=== PATIENT | male | born 1955 | race Caucasian/White ===

== ENCOUNTER 2020-10-18 07:43 | Inpatient (IN) | payer OTHER ==
[2020-10-18 09:34] LABS: Protime INR 1.02
--- NOTE | 2020-10-18 09:38 | RAD REPORT ---
EXAM DESCRIPTION: RAD - Chest Single View - 10/18/2020 9:33 am CLINICAL HISTORY: COUGH COMPARISON: CHEST SINGLE VIEW dated 07/07/2014; CT HEAD SPINE CAP W CONTRAST dated 07/07/2014 FINDINGS: Widespread bilateral airspace disease. This is worse on the left side. The heart size is w ithin normal limits.No acute osseous abnormality. No significant pleural effusions or pneumothorax. P rior left rib plated screw fixation. Embolization coils in left upper quadrant. IMPRESSION: Widespread bilateral airspace disease concerning for multifocal pneumonia.
[2020-10-18 09:46] LABS: Absolute Lymphocytes (CBC) 0.6 K/uL (0.7-4.9); Basophils % 0.6 % (0-1.3); Hematocrit 39.2 % (39.6-49.0); Lymphocytes % 4.4 % (15.3-44.8); RBC Red Blood Cell Count 4.04 M/uL (4.33-5.43)
[2020-10-18 09:51] LABS: ALT/SGPT 49 U/L (12-78); AST/SGOT 88 U/L (15-37); Albumin 3.2 g/dL (3.4-5.0); Alkaline Phosphatase 125 U/L (45-117); BUN Blood Urea Nitrogen 16 mg/dL (7-18); Bicarbonate 26 mmol/L (21-32); Bilirubin Direct 0.3 mg/dL (0-0.2); Bilirubin Total 0.5 mg/dL (0.2-1.0); Glucose Level 115 mg/dL (74-106); Magnesium 1.8 mg/dL (1.8-2.4); NT PRO-BNP 777 pg/mL (<125); Potassium 3.1 mmol/L (3.5-5.1); Sodium Level 141 mmol/L (136-145); Troponin (Emerg Dept Use Only) < 0.02 ng/mL (0.0-0.045)
[2020-10-18] MEDS ORDERED: CEFTRIAXONE/SWI 1gm 1 GM/10 ML SYR ONE (10:49)
[2020-10-18 10:51] LABS: Blood Morphology Comment NOT SEEN (NOT SEEN); Platelet Estimate ADEQ; White Blood Cell Scan OK (OK)
[2020-10-18] MEDS ORDERED: AZITHROMYCIN IV 500 MG in NA CHLORIDE 0.9% 250 ML IVPB ONE (11:00)
--- NOTE | 2020-10-18 11:04 | ER ---
Nurse's Notes [facility] Name: Eulogio Orozco Age: 65 yrs Sex: Male : 1955 Arrival Date: 10/18/2020 Time: 07:49 Bed 17 Private MD: Diagnosis: Pneumonia due to SARS-associated coronavirus;Coronavirus infection, unspecified;Hypoxemia Presentation: 10/18 08:45 Chief complaint: Patient states: Shortness of breath and ear pain that began . ss Coronavirus screen: Client presents with at least one sign or symptom that may indicate coronavirus-19. Standard/surgical mask placed on the client. Provider contacted for isolation considerations. Ebola Screen: Patient denies exposure to infectious person. Patient denies travel to an Ebola-affected area in the 21 days before illness onset. Initial Sepsis Screen:. Risk Assessment: Do you want to hurt yourself or someone else? Patient reports no desire to harm self or others. Onset of symptoms was October 15, 2020. 08:45 Method Of Arrival: Wheelchair 08:45 Acuity: DICK 1 09:01 Initial Sepsis Screen: Does the patient meet any 2 criteria? No. Patient's initial ss sepsis screen is negative. Does the patient have a suspected source of infection? No. Patient's initial sepsis screen is negative. Triage Assessment: 13:00 Respiratory: Reports shortness of breath at rest. ae4 13:16 Respiratory: the patient has severe shortness of breath. ae4 15:34 Respiratory: Onset: The symptoms/episode began/occurred. ae4 Historical: - Allergies: 09:01 No Known Allergies; ss - PMHx: 09:01 Hypertensive disorder; high cholesterol; ss - Immunization history:: Client reports having NOT received the Covid vaccine. - Social history:: Smoking status: Patient/guardian denies using tobacco, the patient reports quitting approximately 15 years ago. Screenin:34 Abuse screen: Denies threats or abuse. Denies injuries from another. Nutritional ae4 screening: No deficits noted. Tuberculosis screening: No symptoms or risk factors identified. Fall Risk None identified. Assessment: 09:30 General: Appears in no apparent distress. uncomfortable. Pain: Denies pain. Neuro: ae4 Level of Consciousness is awake, alert, obeys commands, Oriented to person, place, time, situation, Appropriate for age. Cardiovascular: Heart tones S1 S2 present Patient's skin is warm and dry. Rhythm is regular. Respiratory: Airway is patent Respiratory effort is labored, Respiratory pattern is regular, symmetrical, Breath sounds with crackles bilaterally. Breath sounds are diminished bilaterally. GI: Abdomen is round Bowel sounds present X 4 quads. Patient currently denies abdominal pain. : No signs and/or symptoms were reported regarding the genitourinary system. EENT: No signs and/or symptoms were reported regarding the EENT system. Derm: Skin is pale. Musculoskeletal: No signs and/or symptoms reported regarding the musculoskeletal system. 12:13 Reassessment: Provider notified of O2 status, new orders received. ae4 13:00 Pain: Denies pain. Cardiovascular: Rhythm is regular. Respiratory: Airway is patent ae4 Respiratory effort is labored, with nasal flaring, shallow, using tripod position, Respiratory pattern is regular, symmetrical, tachypnea Breath sounds with crackles bilaterally. Breath sounds are diminished bilaterally. 13:08 Reassessment: Respiratory at bedside. ae4 13:11 Reassessment: Patient's oxygen saturation level dropped to 34% on High flow oxygen. ae4 Provider notified. Patient states " I cannot seem to catch my breath." Provider notified, new orders received. Respiratory Therapy paged. 13:40 General: Appears uncomfortable, Behavior is anxious, restless. Neuro: Level of ae4 Consciousness is awake, alert, obeys commands, Oriented to person, place, time, situation, Appropriate for age. 13:40 Reassessment: Patient states after he went ot CT, he felt like he could not catch his ae4 breath again and that the bipap machine "feels weird. Provider notified, new orders received. 15:30 Reassessment: Patient is resting with eyes closed. Awakens to verbal stimuli. ae4 15:35 Reassessment: Spoke with Pari Orozco, patient's , via telephone. Nurse provided ae4 update via telephone. 17:09 Reassessment: Patient and/or family updated on plan of care and expected duration. Pain ae4 level reassessed. Neuro: Level of Consciousness is awake, alert, obeys commands, Oriented to person, place, time, situation. Respiratory: Airway is patent Respiratory effort is labored, Respiratory pattern is regular, symmetrical, tachypnea Breath sounds with crackles bilaterally. Breath sounds are diminished bilaterally. 18:22 Reassessment: Patient is drowsy, awakens to verbal stimuli and is able to drink from ae4 straw with assistance. 18:45 Reassessment: Patient and/or family updated on plan of care and expected duration. Pain ae4 level reassessed. 19:49 Reassessment: Nurse spoke with Pari patient's via telephone and provided update ae4 on plan of care and patient status. Vital Signs: 08:45 BP 109 / 54; Pulse 107; Resp 25; Pulse Ox 45% on R/A; ss 08:49 BP 128 / 64; Pulse 100; Resp 22; Pulse Ox 25% on R/A; mh5 08:50 Pulse Ox 43% on 6 lpm NC; ss 09:01 Temp 97.8(TE); ss 09:04 Pulse Ox 96% on 15% Non-rebreather mask; ss 10:40 BP 103 / 74; Pulse 88; Resp 19; Pulse Ox 79% on 15% Non-rebreather mask; ae4 12:07 BP 109 / 72; Pulse 98; Resp 20; Pulse Ox 70% on 15% Non-rebreather mask; ae4 13:33 BP 125 / 77; Pulse 108; Resp 33; Pulse Ox 89% on 100% BiPAP; ae4 13:56 BP 113 / 77; Pulse 99; Resp 24; Pulse Ox 82% on 100% BiPAP; ae4 15:28 BP 105 / 64; Pulse 91; Resp 25; Pulse Ox 89% on 100% BiPAP; ae4 16:32 BP 111 / 69; Pulse 91; Resp 32; Pulse Ox 87% on 100% BiPAP; ae4 17:09 BP 115 / 73; Pulse 96; Resp 27; Pulse Ox 23% on 100% BiPAP; ae4 18:21 BP 136 / 56; Pulse 71; Resp 12; Pulse Ox 96% on 8% Nebulizer Mask; ae4 18:44 BP 103 / 71; Pulse 88; Resp 26; Pulse Ox 88% on 100% BiPAP; ae4 19:32 BP 110 / 75; Pulse 88; Resp 28; Pulse Ox 84% on 100% BiPAP; ae4 ED Course: 07:49 Patient arrived in ED. mr 07:56 Dima Erazo MD is Attending Physician. tw4 08:47 Triage completed. ss 08:51 Patient has correct armband on for positive identification. Bed in low position. Call [facility] light in reach. Side rails up X 1. Warm blanket given. Pillow given. wash mill operator on. Pulse ox on. NIBP on. 09:01 Arm band placed on right wrist. ss 09:28 Initial lab(s) drawn, by [place], sent to lab. COVID swab sent to lab. Inserted saline lock: [facility] 22 gauge in right forearm, using aseptic technique. Blood collected. 09:29 Basic Metabolic Panel Sent. 5 09:30 ABG Sent. 5 09:30 COVID-19 : Document "Date of Symptom Onset" if Symptomatic. Sent. 5 09:30 Troponin (emerg Dept Use Only) Sent. 5 09:30 PT-INR Sent. 5 09:30 NT PRO-BNP Sent. [facility] 09:30 Magnesium Sent. 5 09:30 LFT's Sent. 5 09:30 CBC with Diff Sent. 5 09:30 CXR XRAY Sent. 5 09:30 EKG done, by ED staff, reviewed by Dima Erazo MD. 5 09:32 CXR XRAY In Process Unspecified. EDMS 09:42 Wellington Teague, RN is Primary Nurse. ae4 10:58 Aníbal Sunshine is Hospitalizing Provider. tw4 10/19 06:11 Primary Nurse role handed off by Wellington Teague, RN mw2 Administered Medications: 10/18 10:32 Drug: Rocephin (cefTRIAXone) 1 grams Route: IV; Rate: calculated rate; Site: right ae4 antecubital; 14:02 Follow up: Response: No adverse reaction; IV Status: Completed infusion ae4 11:50 Drug: AZITHromycin 500 mg Route: IVPB; Infused Over: 1 hrs; Site: right antecubital; ae4 14:02 Follow up: IV Status: Completed infusion; IV Intake: 250ml ae4 13:45 Drug: Ativan (LORazepam) 0.5 mg Route: IVP; Site: right antecubital; ae4 14:01 Follow up: Response: No adverse reaction; RASS: Alert and Calm (0); RASS: Alert and ae4 Calm (0) Patient appears more relaxed. Intake: 14:02 IV: 250ml; Total: 250ml. ae4 Outcome: 11:04 Decision to Hospitalize by Provider. tw4 10/19 14:45 Patient left the ED. iw Signatures: Dispatcher [employer] Lo Garcia Alexsandra Moreira, TREY YANG Concepcion Alvarez RN RN Pari Godwin [facility] Dima Erazo MD MD tw4 [place] Benitez 2 Wellington Teague RN RN ae4 Corrections: (The following items were deleted from the chart) 10/18 13:25 13:15 Respiratory: Airway is patent Respiratory effort is labored, with nasal flaring, ae4 shallow, using tripod position, Respiratory pattern is regular, symmetrical, tachypnea Breath sounds with crackles bilaterally. Breath sounds are diminished bilaterally. ae4 :25 13:15 Cardiovascular: Rhythm is regular ae4 ae4 :25 13:15 Pain: Denies pain. ae4 ae4 13:56 13:40 Neuro: Level of Consciousness is awake, alert, obeys commands, Oriented to ae4 person, place, time, situation, Appropriate for age ae4 13:58 13:33 BP 125 / 77; Pulse 108bpm; Resp 24bpm; Pulse Ox 89% 02 100% BiPAP; ae4 ae4
--- NOTE | 2020-10-18 11:04 | EDPHYS ---
Physician Documentation [facility] Name: Eulogio Orozco Age: 65 yrs Sex: Male : 1955 Arrival Date: 10/18/2020 Time: 07:49 Bed 17 Private MD: ED Physician Dima Erazo HPI: 10/18 14:14 This 65 yrs old Male presents to ER via Wheelchair with complaints of tw4 Breathing Difficulty, Ear Pain. 14:14 The patient has shortness of breath at rest. tw4 14:14 Onset: The symptoms/episode began/occurred 3 day(s) ago. Duration: The symptoms are tw4 continuous, and are unchanged since they started. The patient's shortness of breath has no apparent modifying factors. Associated signs and symptoms: Pertinent positives: ear pain. Severity of symptoms: At their worst the symptoms were moderate in the emergency department the symptoms are worse. The patient has not experienced similar symptoms in the past. Historical: - Allergies: 09:01 No Known Allergies; ss - PMHx: 09: Hypertensive disorder; high cholesterol; ss - Immunization history:: Client reports having NOT received the Covid vaccine. - Social history:: Smoking status: Patient/guardian denies using tobacco, the patient reports quitting approximately 15 years ago. ROS: 14:14 Constitutional: Negative for fever, chills, and weight loss, Eyes: Negative for injury, tw4 pain, redness, and discharge. 14:14 Cardiovascular: Negative for chest pain, palpitations, and edema, Abdomen/GI: Negative for abdominal pain, nausea, vomiting, diarrhea, and constipation, Back: Negative for injury and pain, MS/Extremity: Negative for injury and deformity, Skin: Negative for injury, rash, and discoloration, Neuro: Negative for headache, weakness, numbness, tingling, and seizure, Psych: Negative for depression, anxiety, suicide ideation, homicidal ideation, and hallucinations. 14:14 ENT: Positive for ear pain, Negative for injury or acute deformity, drainage from ear(s), Gum pain hearing loss, pulling at ears, Teeth pain tinnitus, nasal discharge, rhinorrhea. 14:14 Respiratory: Positive for cough, shortness of breath, Negative for dyspnea on exertion, hemoptysis, orthopnea, pleurisy, sputum production, wheezing. Exam: 14:14 Constitutional: This is a well developed, well nourished patient who is awake, alert, tw4 and in no acute distress. Head/Face: Normocephalic, atraumatic. Chest/axilla: Normal chest wall appearance and motion. Nontender with no deformity. No lesions are appreciated. Cardiovascular: Regular rate and rhythm with a normal S1 and S2. No gallops, murmurs, or rubs. Normal PMI, no JVD. No pulse deficits. 14:14 Abdomen/GI: Soft, non-tender, with normal bowel sounds. No distension or tympany. No guarding or rebound. No evidence of tenderness throughout. Back: No spinal tenderness. No costovertebral tenderness. Full range of motion. Skin: Warm, dry with normal turgor. Normal color with no rashes, no lesions, and no evidence of cellulitis. MS/ Extremity: Pulses equal, no cyanosis. Neurovascular intact. Full, normal range of motion. Neuro: Awake and alert, GCS 15, oriented to person, place, time, and situation. Cranial nerves II-XII grossly intact. Motor strength 5/5 in all extremities. Sensory grossly intact. Cerebellar exam normal. Normal gait. 14:14 Respiratory: moderate respiratory distress is noted, Respirations: labored breathing, Breath sounds: rales, that are moderate, are located in both bases, decreased breath sounds. Vital Signs: 08:45 BP 109 / 54; Pulse 107; Resp 25; Pulse Ox 45% on R/A; ss 08:49 BP 128 / 64; Pulse 100; Resp 22; Pulse Ox 25% on R/A; mh5 08:50 Pulse Ox 43% on 6 lpm NC; ss 09:01 Temp 97.8(TE); ss 09:04 Pulse Ox 96% on 15% Non-rebreather mask; ss 10:40 BP 103 / 74; Pulse 88; Resp 19; Pulse Ox 79% on 15% Non-rebreather mask; ae4 12:07 BP 109 / 72; Pulse 98; Resp 20; Pulse Ox 70% on 15% Non-rebreather mask; ae4 13:33 BP 125 / 77; Pulse 108; Resp 33; Pulse Ox 89% on 100% BiPAP; ae4 13:56 BP 113 / 77; Pulse 99; Resp 24; Pulse Ox 82% on 100% BiPAP; ae4 15:28 BP 105 / 64; Pulse 91; Resp 25; Pulse Ox 89% on 100% BiPAP; ae4 16:32 BP 111 / 69; Pulse 91; Resp 32; Pulse Ox 87% on 100% BiPAP; ae4 17:09 BP 115 / 73; Pulse 96; Resp 27; Pulse Ox 23% on 100% BiPAP; ae4 18:21 BP 136 / 56; Pulse 71; Resp 12; Pulse Ox 96% on 8% Nebulizer Mask; ae4 18:44 BP 103 / 71; Pulse 88; Resp 26; Pulse Ox 88% on 100% BiPAP; ae4 19:32 BP 110 / 75; Pulse 88; Resp 28; Pulse Ox 84% on 100% BiPAP; ae4 MDM: 08:55 Patient medically screened. tw4 14:14 Antibiotic administration: Rocephin and Zithromax given. Data reviewed: vital signs, tw4 nurses notes. Data reviewed: lab test result(s), cardiac enzymes, CBC, electrolytes, hepatic panel, EKG, radiologic studies, plain films. Data interpreted: Pulse oximetry: Interpretation: hypoxia. Plan: O2 by Mask applied. Test interpretation: by ED physician or midlevel provider: ECG. Counseling: I had a detailed discussion with the patient and/or guardian regarding: the historical points, exam findings, and any diagnostic results supporting the discharge/admit diagnosis. 10/18 08:04 Order name: COVID-19 : Document "Date of Symptom Onset" if Symptomatic. tw4 10/18 08:04 Order name: Basic Metabolic Panel tw4 10/18 08:04 Order name: CBC with Diff tw4 10/18 08:04 Order name: LFT's; Complete Time: 09:57 tw4 10/18 08:04 Order name: Magnesium; Complete Time: 09:57 tw4 10/18 08:04 Order name: NT PRO-BNP; Complete Time: 09:57 tw4 10/18 08:04 Order name: PT-INR; Complete Time: 09:57 tw4 10/18 08:04 Order name: Troponin (emerg Dept Use Only); Complete Time: 09:57 tw4 10/18 08:05 Order name: Basic Metabolic Panel; Complete Time: 09:57 EDMS 10/18 09:04 Order name: ABG tw4 10/18 09:05 Order name: ABG Arterial Blood Gas EDMS 10/18 10:39 Order name: SARS-COV-2 RT PCR EDMS 10/18 10:51 Order name: CBC Smear Scan EDMS 10/18 11:46 Order name: Comprehensive Metabolic Panel EDMS 10/18 11:46 Order name: C-Reactive Protein EDMS 10/18 11:46 Order name: C-Reactive Protein EDMS 10/18 11:46 Order name: C-Reactive Protein EDMS 10/18 11:46 Order name: C-Reactive Protein EDMS 10/18 11:46 Order name: Comprehensive Metabolic Panel EDMS 10/18 11:46 Order name: Ferritin EDMS 10/18 11:46 Order name: Ferritin EDMS 10/18 11:46 Order name: Ferritin EDMS 10/18 11:46 Order name: D-Dimer EDMS 10/18 11:46 Order name: D-Dimer EDMS 10/18 11:47 Order name: D-Dimer EDMS 10/18 11:47 Order name: Ferritin EDMS 10/18 11:47 Order name: Lipid Profile EDMS 10/18 11:47 Order name: Lipid Profile EDMS 10/18 11:47 Order name: Magnesium EDMS 10/18 08:04 Order name: CXR XRAY; Complete Time: 09:57 tw4 10/18 08:04 Order name: EKG; Complete Time: 08:05 tw4 10/18 08:04 Order name: Cardiac monitoring; Complete Time: 09:29 tw4 10/18 08:04 Order name: EKG - Nurse/Tech; Complete Time: 09:29 tw4 10/18 08:04 Order name: IV Saline Lock; Complete Time: 09:29 tw4 10/18 08:04 Order name: Labs collected and sent; Complete Time: 09:29 tw4 10/18 08:04 Order name: O2 Per Protocol; Complete Time: 09:29 tw4 10/18 08:04 Order name: O2 Sat Monitoring; Complete Time: 09:29 tw4 10/18 11:47 Order name: Magnesium EDMS 10/18 11:47 Order name: Phosphorus EDMS 10/18 11:47 Order name: Phosphorus EDMS 10/18 11:47 Order name: Heart Healthy EDMS 10/18 11:47 Order name: CBC with Automated Diff EDMS 10/18 11:47 Order name: CBC with Automated Diff EDMS 10/18 11:47 Order name: D-Dimer EDMS 10/18 12:11 Order name: CT Chest For PE Angio tw4 10/18 13:04 Order name: CT EDMS 10/18 20:10 Order name: Glucose, Ancillary Testing EDMS 10/19 09:04 Order name: Glucose, Ancillary Testing EDMS 10/19 09:04 Order name: Glucose, Ancillary Testing EDMS 10/19 11:32 Order name: Glucose, Ancillary Testing EDMS EC:51 Rate is 92 beats/min. Rhythm is regular. QRS [place] is Normal. OR interval is normal. QRS tw4 interval is normal. QT interval is prolonged. No Q waves. T waves are Normal. No ST changes noted. Clinical impression: NSR w/ Non-specific ST/T Changes. Interpreted by me. Reviewed by me. Administered Medications: 10:32 Drug: Rocephin (cefTRIAXone) 1 grams Route: IV; Rate: calculated rate; Site: right ae4 antecubital; 14:02 Follow up: Response: No adverse reaction; IV Status: Completed infusion ae4 11:50 Drug: AZITHromycin 500 mg Route: IVPB; Infused Over: 1 hrs; Site: right antecubital; ae4 14:02 Follow up: IV Status: Completed infusion; IV Intake: 250ml ae4 13:45 Drug: Ativan (LORazepam) 0.5 mg Route: IVP; Site: right antecubital; ae4 14:01 Follow up: Response: No adverse reaction; RASS: Alert and Calm (0); RASS: Alert and ae4 Calm (0) Patient appears more relaxed. Disposition Summary: 10/18/20 11:04 Hospitalization Ordered Hospitalization Status: Inpatient Admission tw4 Provider: Aníbal Sunshine twSyd Condition: Stable tw4 Problem: new tw4 Symptoms: are unchanged tw4 Bed/Room Type: Standard tw4 Location: Telemetry/MedSurg (Inpatient)(10/19/20 12:40) Room Assignment: 426(10/19/20 12:40) bd Diagnosis - Pneumonia due to SARS-associated coronavirus tw4 - Coronavirus infection, unspecified tw4 - Hypoxemia tw4 Forms: - Medication Reconciliation Form tw4 - SBAR form tw4 Signatures: Dispatcher [employer] [facility] Bria Steele Shelby, RN RN ss Dima Erazo MD MD tw4 Li Bustos Andrea, RN RN ae4 Corrections: (The following items were deleted from the chart) :29 08:05 CORONAVIRUS ordered. EDMS EDMS 15:48 11:04 Intensive Care Unit 4 eb 15:48 11:04 [facility] eb 10/19 12:40 08 15:48 [facility] ER HOLD eb bd 10/19 12:40 08 15:48 ERHOLD- eb bd
[2020-10-18] MEDS ORDERED: D50W 25 GM/50 ML SYRINGE IV PRN (11:38)
[2020-10-18] MEDS ORDERED: ONDANSETRON 4 MG/2 ML VIAL IV PRN (11:38)
[2020-10-18] MEDS ORDERED: ALPRAZOLAM 0.25 MG TABLET PO PRN (11:38)
[2020-10-18] MEDS ORDERED: GLUCAGON 1 MG/VIAL IM PRN (11:38)
--- NOTE | 2020-10-18 11:55 | P.HP ---
Certification for Inpatient Patient admitted to: Inpatient With expected LOS: >2 Midnights Practitioner: I am a practitioner with admitting privileges, knowledge of patient current condition, hospital course, and medical plan of care. Services: Services provided to patient in accordance with Admission requirements found in Title 42 Section 412.3 of the Code of Federal Regulations Patient History Date of Service: 10/18/20 Reason for admission: Shortness of breath History of Present Illness: 65-year-old gentleman with a history of COPD, hypertension and hypercholesteremia presented to the emergency department with a complaint of progressive shortness of about 4 days duration. Patient reports nonproductive cough, dyspnea on exertion progressing to dyspnea at rest. Patient found to be hypoxic in the ED and required 100% non-rebreather mask for his oxygen saturation to stay above 90%. Oxygen saturation was 45% on room air on arrival. Chest x-ray demonstrated diffuse bilateral infiltrates. Patient tested positive for COVID 19. He has not recieved the COVID vaccine. Patient has SIRS with leukocytosis and tachycardia. He is admitted for further management. Allergies No Known Allergies Allergy (Unverified 07/07/14 20:02) - Past Medical/Surgical History -: Hypertension -: Hyperlipidemia -: COPD -: Surgery for left broken ribs - Family History Mother -: Diabetes - Social History Smoking Status: Former smoker Alcohol use: Yes CD- Drugs: No Place of Residence: Home Review of Systems Other: Except as documented, all other systems reviewed and negative. Physical Examination - Physical Exam General: Alert, In no apparent distress HEENT: Other (100% non-rebreather mask) Neck: Supple, JVD not distended Respiratory: Diminished, Crackles/rales Cardiovascular: Regular rate/rhythm, Normal S1 S2 Capillary refill: <2 Seconds Gastrointestinal: Normal bowel sounds, Soft and benign, No tenderness Musculoskeletal: No swelling, No tenderness Integumentary: No rashes, No erythema Neurological: Normal speech, Normal strength at 5/5 x4 extr, Cranial nerves 3-12 intact Lymphatics: No axilla or inguinal lymphadenopathy - Studies Laboratory Data (last 24 hrs) 10/18/20 09:20: PT 11.7, INR 1.02 10/18/20 09:20: WBC 14.40 H, Hgb 13.1 L, Hct 39.2 L, Plt Count 215 10/18/20 09:20: Sodium 141, Potassium 3.1 L, BUN 16, Creatinine 1.40 H, Glucose 115 H, Magnesium 1.8, Total Bilirubin 0.5, AST 88 H, ALT 49, Alkaline Phosphatase 125 H Assessment and Plan - Problems (Diagnosis) (1) Pneumonia due to 2019 novel coronavirus Current Visit: Yes Status: Acute (2) Acute respiratory failure with hypoxia Current Visit: Yes Status: Acute (3) Hypertension Current Visit: Yes Status: Acute (4) COPD (chronic obstructive pulmonary disease) Current Visit: Yes Status: Acute - Plan Admit patient to the medical floor. COVID protocol initiated IV steroid, bronchodilators., Vitamin supplementation Pharmacy to evaluate for Remdesivir therapy Monitor inflammatory markers. Consult to pulmonary. Continue home antihypertensives. Continue Lipitor. - Advance Directives Does patient have a Living Will: No Does patient have a Durable POA for Healthcare: No
[2020-10-18 12:00] LABS: Arterial Blood Carboxyhemoglob 1.2 % (0-1.5); Blood Gas Oxyhemoglobin 83.2 % (94-97); Blood O2 Saturation 84.9 % (92-98.5)
--- NOTE | 2020-10-18 13:03 | RAD REPORT ---
EXAM DESCRIPTION: CT - Chest For Pe Angio - 10/18/2020 12:47 pm CLINICAL HISTORY: SOB COMPARISON: No comparisons FINDINGS: Chest Wall: No suspicious thyroid nodules or pathologic lymphadenopathy. Lungs: Widespread ground-glass and consolidative airspace disease which is severe. Pleura: No significant effusions or pneumothorax. Mediastinum/sulaiman: No pathologic lymphadenopathy. Pulmonary arteries/Aorta: No filling defect identified. No aortic aneurysm. Heart: No significant pericardial effusion. Cardiomegaly. Upper abdomen: No acute abnormality. Remote rib fractures. Bones: No acute abnormality. IMPRESSION: Negative for pulmonary embolism. Severe widespread bilateral airspace disease most likel y representing multifocal pneumonia though superimposed edema difficult to entirely exclude
[2020-10-18] MEDS ORDERED: LORazepam 2 MG/ML VIAL ONE (14:04)
[2020-10-18] MEDS ORDERED: FAMOTIDINE 20 MG TAB ONE (20:50)
[2020-10-18] MEDS ORDERED: METHYLPREDNISOLONE 40 MG INJ ONE (20:50)
[2020-10-18] MEDS: FAMOTIDINE 20 MG/2 ML VIAL IV SCH (20:51)
[2020-10-18] MEDS: METHYLPREDNISOLONE 125 MG INJ IV SCH (20:51)
[2020-10-18] MEDS: INSULIN -REGULAR HUMAN 50 UNIT/0.5 ML ML SQ SCH (20:57)
[2020-10-18] MEDS ORDERED: FAMOTIDINE 20 MG/2 ML VIAL IV ONE (21:10)
[2020-10-19 03:14] LABS: Absolute Lymphocytes (CBC) 0.5 K/uL (0.7-4.9); Hematocrit 38.1 % (39.6-49.0); Lymphocytes % 3.9 % (15.3-44.8); MPV 8.8 fL (7.6-11.3); RBC Red Blood Cell Count 3.94 M/uL (4.33-5.43)
[2020-10-19 03:43] LABS: Albumin 2.7 g/dL (3.4-5.0); Bilirubin Total 0.5 mg/dL (0.2-1.0); Ferritin 1890.8 ng/mL (26-388); Magnesium 2.1 mg/dL (1.8-2.4); Phosphorus 2.9 mg/dL (2.5-4.9); Potassium 3.6 mmol/L (3.5-5.1); Protein, Total 6.7 g/dL (6.4-8.2)
[2020-10-19] MEDS: INSULIN -REGULAR HUMAN 50 UNIT/0.5 ML ML SQ SCH ×4 (07:30→21:00)
[2020-10-19] MEDS ORDERED: ENOXAPARIN 40 MG/0.4 ML SQ SCH (09:00)
[2020-10-19] MEDS: FAMOTIDINE 20 MG/2 ML VIAL IV SCH ×2 (09:00→20:55)
[2020-10-19] MEDS: CEFTRIAXONE/SWI 1gm 1 GM/10 ML SYR IV SCH (09:00)
[2020-10-19] MEDS ORDERED: AZITHROMYCIN IV 500 MG in NA CHLORIDE 0.9% 250 ML IVPB SCH (09:00)
[2020-10-19] MEDS: METHYLPREDNISOLONE 125 MG INJ IV SCH ×2 (09:00→20:56)
[2020-10-19] MEDS ORDERED: POTASSIUM CL SA 10 MEQ TAB PO ONE ×2 (09:00→10:22)
[2020-10-19] MEDS ORDERED: METHYLPREDNISOLONE 125 MG INJ ONE (10:01)
[2020-10-19] MEDS ORDERED: CEFTRIAXONE 1000 MG/VIAL ONE (10:02)
[2020-10-19] MEDS ORDERED: ENOXAPARIN 40 MG/0.4 ML SQ ONE (10:02)
[2020-10-19] MEDS ORDERED: FAMOTIDINE 20 MG/2 ML VIAL IV ONE (10:02)
[2020-10-19] MEDS ORDERED: CEFTRIAXONE/SWI 1gm 1 GM/10 ML SYR ONE (10:03)
[2020-10-19] MEDS ORDERED: ALPRAZOLAM 0.25 MG TABLET PO PRN (15:21)
--- NOTE | 2020-10-19 16:33 | P.CNS ---
Date of Consult: 10/19/20 Reason for Consult: Resp failure from COVID Chief Complaint: Shortness of breath History of Present Illness: Age 65 metabolic synd and COPD AW resp faiure from COVID/ requiring high conc of O2 Allergies No Known Allergies Allergy (Unverified 07/07/14 20:02) Home Medications: Amlodipine [Norvasc*] 1 tab PO DAILY 10/18/20 Atorvastatin Calcium 1 tab PO DAILY 10/18/20 Benazepril HCl 1 tab PO DAILY 10/18/20 Fluticasone [Flonase 50MCG Nasal [place]*] 1 spray IH SEECOM 10/18/20 - Past Medical/Surgical History Diabetic: No -: Hypertension -: Hyperlipidemia -: COPD -: Surgery for left broken ribs - Family History Mother Medical History: Diabetes - Social History Alcohol use: No CD- Drugs: No Caffeine use: No Place of Residence: Home Review of Systems General: Weakness Respiratory: Shortness of Breath Physical Examination Temp Pulse Resp BP Pulse Ox 97.6 F 83 24 H 114/75 92 10/19/20 12:00 10/19/20 12:00 10/19/20 12:00 10/19/20 12:00 10/19/20 12:00 General: Alert, Oriented x3, Cooperative, Moderate distress - Problems (1) Pneumonia due to 2019 novel coronavirus Current Visit: Yes Status: Acute Plan: Ag e63 AW severe COVID penumonia/100% FIO2/ BIPAP / ivermectin. Xarelto and ana rosa steroids
[2020-10-19] MEDS: RIVAROXABAN 20 MG TABLET PO SCH (17:00)
[2020-10-19] MEDS: BARICITINIB 2 MG TABLET PO SCH (17:31)
[2020-10-19] MEDS: IVERMECTIN 3 MG TABLET PO SCH (17:32)
--- NOTE | 2020-10-19 18:13 | P.PN ---
Subjective Date of Service: 10/19/20 Chief Complaint: Shortness of breath Patient worse today and now requiring BiPAP with 100% FiO2. Physical Examination - Vital Signs Temperature: 98.3 F Blood Pressure: 121/78 Pulse: 104 Respirations: 22 Pulse Ox (%): 89 - Physical Exam General: Alert, Oriented x3 HEENT: Other (BiPAP/CPAP) Respiratory: Other (Nonlabored breathing.) Cardiovascular: Other (Tachycardia) Gastrointestinal: Soft and benign, Non-distended Musculoskeletal: No swelling Integumentary: No rashes Neurological: Normal strength at 5/5 x4 extr Assessment And Plan - Current Problems (Diagnosis) (1) Pneumonia due to 2019 novel coronavirus Current Visit: Yes Status: Acute (2) Acute respiratory failure with hypoxia Current Visit: Yes Status: Acute (3) Hypertension Current Visit: Yes Status: Acute (4) COPD (chronic obstructive pulmonary disease) Current Visit: Yes Status: Acute - Plan Continue IV steroid, bronchodilators., Vitamin supplementation. Pharmacy to evaluate for Remdesivir therapy. Pulmonary input appreciated. Dr. Tavarez is assisting with management. Patient currently on CPAP. Monitor inflammatory markers. Consult to pulmonary. Continue home antihypertensives. Continue Lipitor.
[2020-10-20] MEDS: ACETAMINOPHEN 500 MG TAB PO PRN (00:20)
[2020-10-20 04:51] LABS: Absolute Lymphocytes (CBC) 0.7 K/uL (0.7-4.9); Basophils % 0.1 % (0-1.3); Hematocrit 34.8 % (39.6-49.0); Lymphocytes % 8.3 % (15.3-44.8); RBC Red Blood Cell Count 3.63 M/uL (4.33-5.43)
[2020-10-20 05:27] LABS: C-Reactive Protein 80.5 mg/L (<3.00); Ferritin 1845.4 ng/mL (26-388); Potassium 3.5 mmol/L (3.5-5.1)
--- NOTE | 2020-10-20 06:05 | P.PN ---
Subjective Date of Service: 10/20/20 Chief Complaint: Shortness of breath Subjective: No new changes (overnight transferred to ICU for high level of O2 need, pt reports feeling slightly better) Physical Examination - Vital Signs Temperature: 98.8 F Blood Pressure: 130/80 Pulse: 94 Respirations: 18 Pulse Ox (%): 84 Assessment & Plan Physician Review Additional Text: Physical Exam General: Alert, Oriented x3 HEENT: normal conjunctiva, sclera anicteric Respiratory: mild tachypnea on 100% BIPAP Cardiovascular: regular rhythm, occasional tachycardia Gastrointestinal: Soft and benign, Non-distended Musculoskeletal: No joint pain/swelling Integumentary: No rashes Problem List Acute hypoxemic respiratory failure secondary to COVID-19 pneumonia HTN chronic COPD Continue IV steroid, bronchodilators, Vitamin supplementation. Baracitinab ordered Pulmonary input appreciated. Dr. Tavarez is assisting with management. Patient currently on CPAP. FIO2: 100% Monitor inflammatory markers. d-dimer worsening started rocephin 10/19, empirically Continue Lipitor. guarded prognosis Time Spent Managing Pts Care (In Minutes): 40
[2020-10-20] MEDS: INSULIN -REGULAR HUMAN 50 UNIT/0.5 ML ML SQ SCH ×4 (07:30→21:00)
--- NOTE | 2020-10-20 09:02 | RAD REPORT ---
EXAM DESCRIPTION: RAD - Chest Single View - 10/20/2020 7:04 am CLINICAL HISTORY: desaturation on bipap Chest pain. COMPARISON: Chest Single View dated 10/18/2020; CHEST SINGLE VIEW dated 07/07/2014; Chest For Pe Angio dated 10/18/2020 FINDINGS: Portable technique limits examination quality. Since 10/18/2020, bilateral pulmonary opacities are mildly worse. The heart is moderately enlarged in size. Hardware is present left rib cage. IMPRESSION: Mild worsening in lung aeration is seen since comparative study.
[2020-10-20 09:10] LABS: Arterial Blood Carboxyhemoglob 0.8 % (0-1.5); Blood Gas Oxyhemoglobin 77.3 % (94-97); Blood O2 Saturation 78.8 % (92-98.5)
[2020-10-20] MEDS: METHYLPREDNISOLONE 125 MG INJ IV SCH ×3 (09:27→20:47)
[2020-10-20] MEDS: FAMOTIDINE 20 MG/2 ML VIAL IV SCH ×2 (09:27→20:47)
[2020-10-20] MEDS: CEFTRIAXONE/SWI 1gm 1 GM/10 ML SYR IV SCH (09:28)
--- NOTE | 2020-10-20 13:57 | P.PN ---
Subjective Date of Service: 10/20/20 Chief Complaint: Shortness of breath Subjective: Improving (Improving still very hypoxic) Review of Systems General: Weakness Respiratory: Shortness of Breath Physical Examination - Vital Signs Temperature: 98.5 F Blood Pressure: 126/73 Pulse: 66 Respirations: 25 Pulse Ox (%): 89 - Physical Exam General: Alert, Cooperative Assessment & Plan - Problems (Diagnosis) (1) Pneumonia due to 2019 novel coronavirus Current Visit: Yes Status: Acute Plan: Hypoxic labs reviewed/ on max TX/ VS stable/ high level o fBIPAP/ prog poor
[2020-10-20] MEDS: BARICITINIB 2 MG TABLET PO SCH (14:29)
[2020-10-20] MEDS ORDERED: FUROSEMIDE 20 MG/ 2ML VIAL IV ONE (15:00)
[2020-10-20] MEDS: RIVAROXABAN 20 MG TABLET PO SCH (18:09)
--- NOTE | 2020-10-20 20:39 | RAD REPORT ---
EXAM DESCRIPTION: RAD - Abdomen 1 View (KUB) - 10/20/2020 8:31 pm CLINICAL HISTORY: dobhoff placement COMPARISON: No comparisons FINDINGS: Nonobstructive bowel gas pattern. No acute osseous abnormality.Visualized lungs are unrema rkable.No abnormal calcifications. The weighting feed tube tip overlies the stomach in satisfactory p osition. Plate and screw fixation hardware involving the left ribs is noted. Patchy infiltrate in the lungs. Embolization coils in left upper quadrant. IMPRESSION: The weighted enteric tube tip terminates overlying the stomach in satisfactory position.
[2020-10-21 05:35] LABS: Absolute Lymphocytes (CBC) 0.9 K/uL (0.7-4.9); Basophils % 0.2 % (0-1.3); Hematocrit 36.6 % (39.6-49.0); MPV 9.1 fL (7.6-11.3); RBC Red Blood Cell Count 3.81 M/uL (4.33-5.43)
[2020-10-21 05:57] LABS: C-Reactive Protein 30.9 mg/L (<3.00); Ferritin 1454.4 ng/mL (26-388); Potassium 3.7 mmol/L (3.5-5.1)
--- NOTE | 2020-10-21 06:15 | P.PN ---
Subjective Date of Service: 10/21/20 Chief Complaint: Shortness of breath Subjective: Improving (Feels as though his breathing more comfortably, FiO2 down to 95%) Review of Systems 10-point ROS is otherwise unremarkable Physical Examination - Vital Signs Temperature: 98.6 F Blood Pressure: 119/73 Pulse: 56 Respirations: 22 Pulse Ox (%): 95 Assessment & Plan Physician Review Additional Text: Physical Exam General: Alert, Oriented x3 HEENT: normal conjunctiva, sclera anicteric Respiratory: mild tachypnea on FIO2 95% BIPAP Cardiovascular: regular rhythm, no edema Gastrointestinal: Soft and benign, Non-distended Musculoskeletal: No joint pain/swelling Integumentary: No rashes Problem List Acute hypoxemic respiratory failure secondary to COVID-19 pneumonia HTN mild hypernatremia chronic COPD Continue IV steroid, bronchodilators, Vitamin supplementation. Baracitinab ordered Pulmonary input appreciated. Dr. Tavarez is assisting with management. Patient currently on BIPAP. FIO2: 95% Monitor inflammatory markers. started rocephin 10/19, empirically; dc'd after one dose per pulm Continue Lipitor. slight improvement, guarded prognosis at this time Time Spent Managing Pts Care (In Minutes): 40
[2020-10-21] MEDS: INSULIN -REGULAR HUMAN 50 UNIT/0.5 ML ML SQ SCH ×4 (07:30→20:06)
[2020-10-21] MEDS: BARICITINIB 2 MG TABLET PO SCH (10:03)
[2020-10-21] MEDS: FAMOTIDINE 20 MG/2 ML VIAL IV SCH ×2 (10:04→20:06)
[2020-10-21] MEDS: METHYLPREDNISOLONE 125 MG INJ IV SCH ×3 (10:04→20:05)
--- NOTE | 2020-10-21 11:33 | P.PN ---
Subjective Date of Service: 10/21/20 Chief Complaint: REsp failure from COVID Subjective: Improving (More alert and responisve on BIPAP) Review of Systems General: Weakness Respiratory: Shortness of Breath Physical Examination - Vital Signs Temperature: 98.6 F Blood Pressure: 119/73 Pulse: 56 Respirations: 22 Pulse Ox (%): 95 - Physical Exam General: Alert, In no apparent distress, Oriented x3 Assessment & Plan - Problems (Diagnosis) (1) Pneumonia due to 2019 novel coronavirus Current Visit: Yes Status: Acute Plan: Resp failure Advance Fluids/ Hypernatremia/on Max therapy/ Wean down on O2
[2020-10-21] MEDS: RIVAROXABAN 20 MG TABLET PO SCH (17:52)
[2020-10-21] MEDS: IVERMECTIN 3 MG TABLET PO SCH (17:52)
[2020-10-22 05:04] LABS: Absolute Lymphocytes (CBC) 0.6 K/uL (0.7-4.9); Basophils % 0.1 % (0-1.3); Hematocrit 38.6 % (39.6-49.0); Lymphocytes % 3.7 % (15.3-44.8); MPV 8.9 fL (7.6-11.3); RBC Red Blood Cell Count 4.01 M/uL (4.33-5.43)
[2020-10-22 05:45] LABS: Albumin 2.7 g/dL (3.4-5.0); Bilirubin Total 0.9 mg/dL (0.2-1.0); C-Reactive Protein 18.5 mg/L (<3.00); Ferritin 1217.9 ng/mL (26-388); Potassium 4.6 mmol/L (3.5-5.1); Protein, Total 6.2 g/dL (6.4-8.2)
--- NOTE | 2020-10-22 05:54 | P.PN ---
Subjective Date of Service: 10/22/20 Chief Complaint: Shortness of breath Subjective: Improving (Patient reports breathing more comfortably today. Transferred out of the ICU. Inflammatory markers improved. FiO2 down to 70%.) Review of Systems 10-point ROS is otherwise unremarkable Physical Examination - Vital Signs Temperature: 97.0 F Blood Pressure: 129/80 Pulse: 67 Respirations: 18 Pulse Ox (%): 91 Assessment & Plan Physician Review Additional Text: Physical Exam General: Alert, Oriented x3 HEENT: normal conjunctiva, sclera anicteric Respiratory: nonlabored on FIO2 70% BIPAP Cardiovascular: regular rhythm, no edema Gastrointestinal: Soft and benign, Non-distended Musculoskeletal: No joint pain/swelling Integumentary: No rashes Problem List Acute hypoxemic respiratory failure secondary to COVID-19 pneumonia HTN mild hypernatremia chronic COPD Continue IV steroid, bronchodilators, Vitamin supplementation. continue Baracitinab Pulmonary input appreciated Patient currently on BIPAP. FIO2: 70% improving started rocephin 10/19, empirically; dc'd after one dose per pulm Continue Lipitor. dobhoff placed 10/20, tube feeds CXR in AM slight improvement anticipate dc home with home o2 in ~4-5 days Time Spent Managing Pts Care (In Minutes): 35
[2020-10-22 06:02] LABS: Blood Morphology Comment NOT SEEN (NOT SEEN); Platelet Estimate ADEQ; Platelets, Giant PRESENT
[2020-10-22] MEDS: INSULIN -REGULAR HUMAN 50 UNIT/0.5 ML ML SQ SCH ×4 (07:30→21:29)
[2020-10-22] MEDS: FAMOTIDINE 20 MG/2 ML VIAL IV SCH ×2 (10:53→19:50)
[2020-10-22] MEDS: BARICITINIB 2 MG TABLET PO SCH (10:53)
[2020-10-22] MEDS: METHYLPREDNISOLONE 125 MG INJ IV SCH ×3 (10:53→19:50)
[2020-10-22] MEDS ORDERED: JEVITY 1.5 CAL LIQUID 1,000 ML BOT RTH SCH (11:00)
--- NOTE | 2020-10-22 14:27 | P.PN ---
Subjective Date of Service: 10/22/20 Chief Complaint: Shortness of breath Subjective: Improving ([place]) Review of Systems General: Weakness Respiratory: Shortness of Breath Physical Examination - Vital Signs Temperature: 97.1 F Blood Pressure: 136/81 Pulse: 68 Respirations: 24 Pulse Ox (%): 99 - Physical Exam General: Alert, Oriented x3, Cooperative Assessment & Plan - Problems (Diagnosis) (1) Pneumonia due to 2019 novel coronavirus Current Visit: Yes Status: Acute Plan: Improving/ On 70% Fio2 /labs reviewed/max TX
[2020-10-22] MEDS: RIVAROXABAN 20 MG TABLET PO SCH (16:43)
[2020-10-23 05:16] LABS: Absolute Lymphocytes (CBC) 0.3 K/uL (0.7-4.9); Basophils % 0.1 % (0-1.3); Hematocrit 38.5 % (39.6-49.0); Lymphocytes % 1.7 % (15.3-44.8); MPV 9.3 fL (7.6-11.3); RBC Red Blood Cell Count 4.02 M/uL (4.33-5.43)
[2020-10-23 05:35] LABS: Albumin 2.5 g/dL (3.4-5.0); Bilirubin Total 0.8 mg/dL (0.2-1.0); C-Reactive Protein 23.7 mg/L (<3.00); Ferritin 1684.3 ng/mL (26-388); Protein, Total 5.9 g/dL (6.4-8.2)
--- NOTE | 2020-10-23 07:33 | RAD REPORT ---
EXAM DESCRIPTION: RAD - Chest Single View - 10/23/2020 5:11 am CLINICAL HISTORY: COVID pneumonia COMPARISON: October 20 TECHNIQUE: AP portable chest image was obtained 10/23/2020 5:11 am . FINDINGS: Lung volumes are low. Bilateral pneumonia pattern is similar to slightly improved in the l eft lung field. Right lung findings not substantially different. Cardiac silhouette remains enlarged. Vasculature within range of normal for shallow inspiration. Feeding tube is curled in the stomach. No measurable pleural effusion and no pneumothorax. No acute bony abnormality seen. No acute aortic findings suspected. IMPRESSION: Bilateral COVID-19 pneumonia pattern showing slight improvement on the left.
[2020-10-23] MEDS: INSULIN -REGULAR HUMAN 50 UNIT/0.5 ML ML SQ SCH ×4 (07:55→20:24)
[2020-10-23] MEDS: BARICITINIB 2 MG TABLET PO SCH (07:55)
[2020-10-23] MEDS: FAMOTIDINE 20 MG/2 ML VIAL IV SCH ×2 (07:56→21:21)
[2020-10-23] MEDS: METHYLPREDNISOLONE 125 MG INJ IV SCH ×3 (07:56→20:25)
--- NOTE | 2020-10-23 15:47 | P.PN ---
Subjective Date of Service: 10/23/20 Chief Complaint: Shortness of breath Subjective: No new changes (No significant events overnight. Patient was placed on CPAP overnight and tolerated okay. Reports he feels his breathing more comfortably today. He is having bowel movements. Inflammatory markers worsened. CXR improved slightly) Review of Systems 10-point ROS is otherwise unremarkable Physical Examination - Vital Signs Temperature: 97.8 F Blood Pressure: 141/87 Pulse: 85 Respirations: 22 Pulse Ox (%): 100 Assessment & Plan Physician Review Additional Text: Physical Exam General: Alert, Oriented x3 HEENT: normal conjunctiva, sclera anicteric, pressure ulcer on bridge of nose Respiratory: mildly labored on BIPAP Cardiovascular: regular rhythm, no edema Gastrointestinal: Soft and benign, Non-distended Musculoskeletal: No joint pain/swelling Problem List Acute hypoxemic respiratory failure secondary to COVID-19 pneumonia HTN mild hypernatremia chronic COPD Continue IV steroid, bronchodilators, Vitamin supplementation. continue Baracitinab Pulmonary input appreciated Patient currently on BIPAP. improving started rocephin 10/19, empirically; dc'd after one dose per pulm Continue Lipitor. dobhoff placed 10/20, tube feeds anticipate dc home with home o2 in ~4-5 days Guarded prognosis Time Spent Managing Pts Care (In Minutes): 40
[2020-10-23] MEDS: IVERMECTIN 3 MG TABLET PO SCH (17:35)
[2020-10-23] MEDS: RIVAROXABAN 20 MG TABLET PO SCH (17:35)
[2020-10-24 05:55] LABS: Absolute Lymphocytes (CBC) 0.2 K/uL (0.7-4.9); Basophils % 0.4 % (0-1.3); Hematocrit 38.1 % (39.6-49.0); Lymphocytes % 0.9 % (15.3-44.8); RBC Red Blood Cell Count 3.97 M/uL (4.33-5.43)
--- NOTE | 2020-10-24 06:23 | P.PN ---
Subjective Date of Service: 10/24/20 Chief Complaint: Shortness of breath Subjective: Improving (Patient reports he is feeling much better today, still requiring high levels of oxygen, tolerated breakfast with some hypoxia) Review of Systems 10-point ROS is otherwise unremarkable Physical Examination - Vital Signs Temperature: 99 F Blood Pressure: 144/75 Pulse: 76 Respirations: 20 Pulse Ox (%): 88 Assessment & Plan Physician Review Additional Text: Physical Exam General: Alert, Oriented x3 HEENT: normal conjunctiva, sclera anicteric, pressure ulcer on bridge of nose. Dobbhoff in place Respiratory: mildly labored respirations on nonrebreather Cardiovascular: regular rhythm, no edema Gastrointestinal: Soft and benign, Non-distended Musculoskeletal: No joint pain/swelling Problem List Acute hypoxemic respiratory failure secondary to COVID-19 pneumonia HTN mild hypernatremia chronic COPD Continue IV steroid, bronchodilators, Vitamin supplementation. continue Baracitinab Pulmonary input appreciated Patient currently on nonrebreather started rocephin 10/19, empirically; dc'd after one dose per pulm Continue Lipitor. dobhoff placed 10/20, tube feeds, tolerated breakfast this morning was evaluated throughout the day, if having significant hypoxia while eating, continue with Dobbhoff, otherwise can discontinue anticipate dc home with home o2 in ~4 days Guarded prognosis Time Spent Managing Pts Care (In Minutes): 40
[2020-10-24] MEDS: INSULIN -REGULAR HUMAN 50 UNIT/0.5 ML ML SQ SCH ×4 (07:30→21:00)
[2020-10-24 08:38] LABS: Albumin 2.4 g/dL (3.4-5.0); Bilirubin Total 0.7 mg/dL (0.2-1.0); C-Reactive Protein 30.3 mg/L (<3.00); Ferritin 2074.1 ng/mL (26-388); Potassium 3.2 mmol/L (3.5-5.1); Protein, Total 5.7 g/dL (6.4-8.2)
[2020-10-24] MEDS: FAMOTIDINE 20 MG/2 ML VIAL IV SCH ×2 (09:42→21:00)
[2020-10-24] MEDS: BARICITINIB 2 MG TABLET PO SCH (09:42)
[2020-10-24] MEDS: METHYLPREDNISOLONE 125 MG INJ IV SCH ×3 (09:46→21:00)
[2020-10-24] MEDS ORDERED: POTASSIUM CL SA 10 MEQ TAB PO ONE (14:00)
[2020-10-24] MEDS: RIVAROXABAN 20 MG TABLET PO SCH (16:25)
[2020-10-25] MEDS ORDERED: LORazepam 2 MG/ML VIAL ONE ×2 (01:31→04:52)
[2020-10-25] MEDS ORDERED: WATER FOR INJ,STERILE 10 ML ONE ×2 (02:59→05:08)
[2020-10-25] MEDS ORDERED: ZIPRASIDONE MESYLA 20 MG/VIAL IM ONE ×2 (02:59→05:07)
[2020-10-25] MEDS: MIDAZOLAM HCL 2 MG/2 ML INJ IV PRN ×2 (05:10→10:55)
[2020-10-25] MEDS ORDERED: MIDAZOLAM HCL 2 MG/2 ML INJ ONE (05:37)
[2020-10-25] MEDS ORDERED: HALOPERIDOL LACT 5 MG/ML INJ ONE (06:02)
[2020-10-25] MEDS ORDERED: RSI MEDICATION KIT IV ONE (06:06)
--- NOTE | 2020-10-25 06:06 | P.PN ---
Subjective Date of Service: 10/25/20 Chief Complaint: Shortness of breath Subjective: Worsening (Overnight patient took his mask off, became hypoxic, and more combative/agitated. Hypoxic down to 60%. Required multiple doses of several medications with minimal improvement. He was intubated due to persistent hypoxia safety from self) Review of Systems is unable to be obtained Physical Examination - Vital Signs Temperature: 98.6 F Blood Pressure: 148/82 Pulse: 81 Respirations: 21 Pulse Ox (%): 97 Assessment & Plan Physician Review Additional Text: Physical Exam General: Intubated/sedated HEENT: normal conjunctiva, sclera anicteric, pressure ulcer on bridge of nose. Respiratory: Intubated, bilateral crackles, diminished bilaterally Cardiovascular: regular rhythm, no edema Gastrointestinal: Soft and benign, Non-distended Musculoskeletal: No joint pain/swelling Problem List Acute hypoxemic respiratory failure secondary to COVID-19 pneumonia HTN mild hypernatremia chronic COPD Continue IV steroid, bronchodilators, Vitamin supplementation. continue Baracitinab Pulmonary consulted Intubated 10/25 after found to be hypoxic and combative Propofol, Nimbex ordered Wean vent as tolerated With some hypotension, received IV fluid bolus, continue gentle IV fluids Place feeding tube Family updated reports patient used to be a daily drinker of 6 pack a day. But has not drank in over a month. Guarded prognosis Time Spent Managing Pts Care (In Minutes): 60 (Critical care time: 45 minutes)
[2020-10-25] MEDS ORDERED: HALOPERIDOL LACT 5 MG/ML INJ IV PRN (06:26)
[2020-10-25] MEDS ORDERED: NA CHLORIDE 0.9% 250 ML IV PRN (06:26)
[2020-10-25] MEDS ORDERED: propofoL 1,000 MG/100 ML VIAL IV ONE (06:28)
[2020-10-25] MEDS ORDERED: FENTANYL CITR 100 MCG/2 ML ONE (07:01)
[2020-10-25 07:04] LABS: Absolute Lymphocytes (CBC) 0.1 K/uL (0.7-4.9); Basophils % 0.4 % (0-1.3); Hematocrit 38.3 % (39.6-49.0); Lymphocytes % 0.6 % (15.3-44.8); MPV 10.3 fL (7.6-11.3); RBC Red Blood Cell Count 3.97 M/uL (4.33-5.43)
[2020-10-25] MEDS ORDERED: CISATRACURIUM INJECTION 2 MG/ML (10 ML Vial) IV PRN (07:24)
[2020-10-25 07:35] LABS: C-Reactive Protein 36.5 mg/L (<3.00); Ferritin 2763.3 ng/mL (26-388); Magnesium 2.3 mg/dL (1.8-2.4); Potassium 3.2 mmol/L (3.5-5.1)
[2020-10-25] MEDS ORDERED: NA CHLORIDE 0.9% IV SCH (07:35)
[2020-10-25] MEDS ORDERED: CISATRACURIUM BESYLATE IV SCH (07:35)
--- NOTE | 2020-10-25 07:35 | RAD REPORT ---
EXAM DESCRIPTION: RAD - Chest Single View - 10/25/2020 6:43 am CLINICAL HISTORY: S/P INTUBATION, respiratory distress COMPARISON: October 23 TECHNIQUE: AP portable chest image was obtained 10/25/2020 6:43 am . FINDINGS: Endotracheal tube is in place. Tip is 2 cm above the brady at the mid aortic arch level. Feeding tube has removed. Lung volumes are low. Interstitial and alveolar opacities are similar in appearance to the prior stud y. Cardiomediastinal silhouette is normal range and stable. No measurable pleural effusion and no pne umothorax. No acute bony abnormality seen. No acute aortic findings suspected. IMPRESSION: ET tube tip is mid aortic arch level, 2 cm above the brady. Bilateral lung parenchymal opacification has not changed.
[2020-10-25] MEDS ORDERED: CISATRACURIUM BESYLATE 40 MG in NA CHLORIDE 0.9% 80 ML IV SCH (08:00)
[2020-10-25] MEDS: CISATRACURIUM BESYLATE 40 MG in NA CHLORIDE 0.9% 80 ML IV PRN ×2 (08:12→17:37)
[2020-10-25] MEDS: propofoL 1,000 MG/100 ML VIAL IV PRN ×4 (09:09→22:47)
[2020-10-25] MEDS: INSULIN -REGULAR HUMAN 50 UNIT/0.5 ML ML SQ SCH ×3 (09:09→16:30)
[2020-10-25] MEDS: METHYLPREDNISOLONE 125 MG INJ IV SCH ×3 (09:10→20:11)
[2020-10-25] MEDS: FAMOTIDINE 20 MG/2 ML VIAL IV SCH ×2 (09:10→20:12)
[2020-10-25] MEDS ORDERED: NA CHLORIDE 0.9% 500 ML IV ONE (09:22)
--- NOTE | 2020-10-25 09:25 | RAD REPORT ---
EXAM DESCRIPTION: RAD - Chest Single View - 10/25/2020 8:35 am CLINICAL HISTORY: NG tube COMPARISON: October 25, October 20 TECHNIQUE: AP portable chest image was obtained 10/25/2020 8:35 am . FINDINGS: Limited portable chest film was obtained for NG tube assessment. The NG tube tip is curled in the proximal stomach, good position stomach is decompressed.
[2020-10-25 10:28] LABS: Blood Morphology Comment NOT SEEN (NOT SEEN); Platelet Estimate ADEQ; White Blood Cell Scan OK (OK)
[2020-10-25] MEDS: KCL 20 MEQ/100 mL IVPB 20 MEQ/100 ML BAG IV SCH ×2 (10:29→12:09)
[2020-10-25] MEDS: BARICITINIB 2 MG TABLET PO SCH (10:47)
[2020-10-25 13:18] LABS: Urine Appearance CLOUDY (Clear); Urine Bilirubin NEGATIVE (Negative); Urine Blood 3+ (Negative); Urine Color YELLOW (Yellow); Urine Glucose NEGATIVE (Negative); Urine Protein 1+ (Negative); Urine Specific Gravity 1.015 (1.005-1.030); Urine Urobilinogen 0.2 mg/dL (0.2-1.0)
[2020-10-25 13:20] LABS: Urine Microscopic Reflex ORDER UMIC
[2020-10-25 13:39] LABS: Urine Bacteria <20 /HPF (NONE SEEN); Urine Mucus 2+ /HPF (NONE SEEN); Urine RBC <5 /HPF (NONE SEEN)
[2020-10-25] MEDS: NA CHLORIDE 0.9% 1,000 ML IV SCH (14:22)
[2020-10-25] MEDS ORDERED: SUCCINYLCHOLINE 20 MG/ML (10 ML) IV ONE (15:39)
[2020-10-25] MEDS: RIVAROXABAN 20 MG TABLET PO SCH (17:00)
[2020-10-25] MEDS: IVERMECTIN 3 MG TABLET PO SCH (17:37)
[2020-10-25 18:53] LABS: Arterial Blood Carboxyhemoglob 1.1 % (0-1.5); Blood Gas Oxyhemoglobin 91.4 % (94-97); Blood O2 Saturation 93.5 % (92-98.5)
--- NOTE | 2020-10-25 20:20 | P.PN ---
Subjective Date of Service: 10/25/20 Chief Complaint: resp failure now on vent Subjective: Worsening (PT condition deterirated and placed on vent) Review of Systems is unable to be obtained Physical Examination - Vital Signs Temperature: 100.1 F Blood Pressure: 104/64 Pulse: 56 Respirations: 20 Pulse Ox (%): 95 - Physical Exam General: Moderate distress Assessment & Plan - Problems (Diagnosis) (1) Pneumonia due to 2019 novel coronavirus Current Visit: Yes Status: Acute Plan: Resp failure now on vent/CXRY rry and labs reviewed/ settng reviewed/ developed post intubation hypotension
[2020-10-25] MEDS ORDERED: VITAL AF 1,000 ML BOT FT SCH (22:00)
[2020-10-26] MEDS: CISATRACURIUM BESYLATE 40 MG in NA CHLORIDE 0.9% 80 ML IV PRN ×4 (01:03→19:48)
[2020-10-26] MEDS: propofoL 1,000 MG/100 ML VIAL IV PRN ×4 (02:03→19:42)
[2020-10-26] MEDS: NA CHLORIDE 0.9% 1,000 ML IV SCH (02:52)
[2020-10-26 05:15] LABS: Absolute Lymphocytes (CBC) 0.1 K/uL (0.7-4.9); Basophils % 0.3 % (0-1.3); MPV 10.5 fL (7.6-11.3); RBC Red Blood Cell Count 3.84 M/uL (4.33-5.43)
[2020-10-26 05:43] LABS: BUN Blood Urea Nitrogen 31 mg/dL (7-18); Bicarbonate 32 mmol/L (21-32); Ferritin 3384.6 ng/mL (26-388); Glucose Level 129 mg/dL (74-106); Magnesium 2.6 mg/dL (1.8-2.4); Potassium 3.8 mmol/L (3.5-5.1); Sodium Level 144 mmol/L (136-145)
--- NOTE | 2020-10-26 05:53 | P.PN ---
Subjective Date of Service: 10/26/20 Chief Complaint: resp failure now on vent Subjective: No new changes (No acute events overnight, patient remains intubated/sedated. PICC line placed yesterday evening Nursing staff reports minimal blood in oral cavity) Review of Systems 10-point ROS is otherwise unremarkable Physical Examination - Vital Signs Temperature: 98.5 F Blood Pressure: 157/94 Pulse: 78 Respirations: 22 Pulse Ox (%): 92 Assessment & Plan Physician Review Additional Text: Physical Exam General: Intubated/sedated HEENT: normal conjunctiva, sclera anicteric, pressure ulcer on bridge of nose. Respiratory: Intubated, bilateral crackles, diminished bilaterally Cardiovascular: regular rhythm, no edema Gastrointestinal: Soft and benign, Non-distended Musculoskeletal: No joint pain/swelling garibay in place Problem List Acute hypoxemic respiratory failure secondary to COVID-19 pneumonia HTN mild hypernatremia chronic COPD Continue IV steroid, bronchodilators, Vitamin supplementation. continue Baracitinab Pulmonary consulted Intubated 10/25 after found to be hypoxic and combative Propofol, Nimbex ordered Wean vent as tolerated With some hypotension on 10/25, received IV fluid bolus with improvement Placed feeding tube Family updated reports patient used to be a daily drinker of 6 pack a day. But has not drank in over a month. Guarded prognosis family want to continue with full code Time Spent Managing Pts Care (In Minutes): 35
[2020-10-26] MEDS: INSULIN -REGULAR HUMAN 50 UNIT/0.5 ML ML SQ SCH ×4 (06:00→18:00)
--- NOTE | 2020-10-26 07:10 | RAD REPORT ---
EXAM DESCRIPTION: RAD - Chest Single View - 10/26/2020 6:20 am CLINICAL HISTORY: Intubated, Covid COMPARISON: Chest Single View dated 10/25/2020; Chest Single View dated 10/25/2020; Chest Single View dated 10/25/2020; Chest Single View dated 10/23/2020; Chest For Pe Angio dated 10/18/2020 FINDINGS: Widespread bilateral airspace disease is similar to 10/25/2020. Endotracheal tube terminat es at the aortic arch in satisfactory position. NG tube below the diaphragm. Right subclavian approac h PICC with tip overlying the SVC. Plate is screw fixation of a left-sided rib fractures is again not ed. Similar cardiomegaly.No acute osseous abnormality. No pneumothorax. IMPRESSION: Widespread airspace disease is similar. Support apparatus is stable.
[2020-10-26] MEDS: MIDAZOLAM HCL 2 MG/2 ML INJ IV PRN ×2 (07:36→15:06)
[2020-10-26] MEDS: METHYLPREDNISOLONE 125 MG INJ IV SCH ×3 (08:24→20:11)
[2020-10-26] MEDS: FAMOTIDINE 20 MG/2 ML VIAL IV SCH ×2 (08:24→20:11)
[2020-10-26] MEDS: BARICITINIB 2 MG TABLET PO SCH (08:24)
[2020-10-26] MEDS: FENTANYL CITR 100 MCG/2 ML IV PRN (15:52)
[2020-10-26] MEDS: RIVAROXABAN 20 MG TABLET PO SCH (17:01)
--- NOTE | 2020-10-26 18:39 | P.PN ---
Subjective Date of Service: 10/26/20 Chief Complaint: resp failure now on vent NC very hypoxic and agitated Review of Systems is unable to be obtained Physical Examination - Vital Signs Temperature: 98.6 F Blood Pressure: 155/93 Pulse: 85 Respirations: 21 Pulse Ox (%): 92 - Physical Exam General: Unresponsive Respiratory: Clear to auscultation bilaterally, Diminished Cardiovascular: No edema Assessment & Plan - Problems (Diagnosis) (1) Pneumonia due to 2019 novel coronavirus Current Visit: Yes Status: Acute Plan: Resp failure/ on 75% FIO2 /labs and CXRy reviewed/Et satisfactory
--- NOTE | 2020-10-26 22:39 | RAD REPORT ---
EXAM DESCRIPTION: RAD - Chest Single View - 10/25/2020 11:51 pm COMPARISON: Chest radiograph October 25, 2020 CLINICAL HISTORY: [facility] MA[facility] PICC line FINDINGS: A single AP view of the chest demonstrates a mildly enlarged cardiomediastinal silhouette. Stable endotracheal tube. Right PICC line tip terminates over the lower SVC. Enteric tube tip projec ts over the gastric body. No pneumothorax or pleural effusion. Bilateral perihilar opacities have mildly progressed. Left rib fracture fixated are noted. IMPRESSION: Right PICC line placement. Mild progression of multifocal pneumonia versus pulmonary jadiel ma. Electronically signed by: Julien Levy MD 10/25/2020 11:57 PM CDT Due to temporary technical issues with the PACS/Fluency reporting system, reports are being signed by the in house radiologist without review as a courtesy to ensure prompt reporting. The interpreting r adiologist is fully responsible for the content of the report.
[2020-10-27] MEDS: INSULIN -REGULAR HUMAN 50 UNIT/0.5 ML ML SQ SCH ×4 (00:27→17:27)
[2020-10-27] MEDS: propofoL 1,000 MG/100 ML VIAL IV PRN ×4 (00:31→17:29)
[2020-10-27] MEDS: CISATRACURIUM BESYLATE 40 MG in NA CHLORIDE 0.9% 80 ML IV PRN ×4 (02:59→21:47)
[2020-10-27] MEDS ORDERED: NA CHLORIDE 0.9% 100 ML ONE (03:20)
[2020-10-27] MEDS ORDERED: CISATRACURIUM INJECTION 2 MG/ML (10 ML Vial) IV ONE (03:21)
[2020-10-27] MEDS: FENTANYL CITR 100 MCG/2 ML IV PRN (03:24)
[2020-10-27 05:33] LABS: Absolute Lymphocytes (CBC) 0.2 K/uL (0.7-4.9); Basophils % 0.5 % (0-1.3); Hematocrit 38.8 % (39.6-49.0); Lymphocytes % 0.7 % (15.3-44.8); RBC Red Blood Cell Count 3.98 M/uL (4.33-5.43)
[2020-10-27 05:57] LABS: C-Reactive Protein 22.7 mg/L (<3.00); Ferritin 2420.4 ng/mL (26-388); Magnesium 2.5 mg/dL (1.8-2.4); Potassium 4.1 mmol/L (3.5-5.1)
[2020-10-27 07:33] LABS: Blood Morphology Comment NOT SEEN (NOT SEEN); Platelet Estimate ADEQ
--- NOTE | 2020-10-27 07:47 | RAD REPORT ---
EXAM DESCRIPTION: [place] Single View10/27/2020 6:26 am CLINICAL HISTORY: Shortness of breath COMPARISON: October 26 none FINDINGS: No significant change in diffuse bilateral pulmonary opacities. Heart is mildly enlarged. Endotracheal tube at the level of the aortic arch. Nasogastric tube coiled within the proximal stomac h. IMPRESSION: No significant change in the diffuse bilateral pulmonary opacities
[2020-10-27] MEDS: FAMOTIDINE 20 MG/2 ML VIAL IV SCH ×2 (08:10→20:29)
[2020-10-27] MEDS: METHYLPREDNISOLONE 125 MG INJ IV SCH ×3 (08:10→20:29)
[2020-10-27] MEDS: BARICITINIB 2 MG TABLET PO SCH (08:10)
--- NOTE | 2020-10-27 14:52 | P.PN ---
Subjective Date of Service: 10/27/20 Chief Complaint: resp failure now on vent No major changes from yesterday. Patient remain on the vent with an FiO2 90%. Physical Examination - Vital Signs Temperature: 97.5 F Blood Pressure: 81/63 Pulse: 80 Respirations: 20 Pulse Ox (%): 93 - Physical Exam General: Other (Sedated) HEENT: Other (ETT) Respiratory: Other (Bilateral upper airway transmitted sounds) Cardiovascular: Regular rate/rhythm, Normal S1 S2 Gastrointestinal: Soft and benign, Non-distended Musculoskeletal: No swelling Neurological: Other (Sedated) Assessment And Plan - Current Problems (Diagnosis) (1) Pneumonia due to 2019 novel coronavirus Current Visit: Yes Status: Acute (2) Acute respiratory failure with hypoxia Current Visit: Yes Status: Acute (3) Hypertension Current Visit: Yes Status: Acute (4) COPD (chronic obstructive pulmonary disease) Current Visit: Yes Status: Acute Physician Review Additional Text: Problem List Acute hypoxemic respiratory failure secondary to COVID-19 pneumonia HTN mild hypernatremia chronic COPD Continue IV steroid, bronchodilators, Vitamin supplementation. On Baracitinab Pulmonary consulted Intubated 10/25 after found to be hypoxic and combative Propofol, Nimbex ordered Wean vent as tolerated NGT in situ. Tube feeding. On Xarelto for DVT prophylaxis. Guarded prognosis Full code
[2020-10-27] MEDS: RIVAROXABAN 20 MG TABLET PO SCH (17:27)
[2020-10-27] MEDS: IVERMECTIN 3 MG TABLET PO SCH (17:27)
[2020-10-28] MEDS: INSULIN -REGULAR HUMAN 50 UNIT/0.5 ML ML SQ SCH ×4 (00:11→16:55)
[2020-10-28] MEDS: propofoL 1,000 MG/100 ML VIAL IV PRN ×6 (00:44→23:01)
[2020-10-28 04:56] LABS: Absolute Lymphocytes (CBC) 0.1 K/uL (0.7-4.9); Basophils % 0.2 % (0-1.3); Hematocrit 33.5 % (39.6-49.0); Lymphocytes % 0.8 % (15.3-44.8); MPV 10.7 fL (7.6-11.3); RBC Red Blood Cell Count 3.45 M/uL (4.33-5.43)
[2020-10-28 05:58] LABS: BUN Blood Urea Nitrogen 35 mg/dL (7-18); Bicarbonate 34 mmol/L (21-32); Ferritin 2363.8 ng/mL (26-388); Glucose Level 159 mg/dL (74-106); Potassium 4.2 mmol/L (3.5-5.1); Sodium Level 145 mmol/L (136-145)
[2020-10-28] MEDS: CISATRACURIUM BESYLATE 40 MG in NA CHLORIDE 0.9% 80 ML IV PRN ×4 (07:12→23:17)
--- NOTE | 2020-10-28 07:35 | RAD REPORT ---
EXAM DESCRIPTION: RAD - Chest Single View - 10/28/2020 6:21 am CLINICAL HISTORY: Intubated, Covidpneumonia COMPARISON: October 27 TECHNIQUE: AP portable chest image was obtained 10/28/2020 6:21 am . FINDINGS: ET tube tip has not changed position. Tip is approximately 3 cm above the brady. NG tube remains curled in the stomach with the right-side PICC line still in place. Lung volumes are low. Interstitial and alveolar opacities have shown improvement the prior day study. Findings remain most pronounced in the left base. Heart and vasculature are normal. No measurable pleural effusion and no pneumothorax. No acute bony abnormality seen. No acute aortic findings suspected. IMPRESSION: Partial clearing of the bilateral pneumonia findings since October 27 imaging. ET tube, NG tube and PICC line remain in good position.
[2020-10-28] MEDS: METHYLPREDNISOLONE 125 MG INJ IV SCH ×3 (08:39→20:31)
[2020-10-28] MEDS: FAMOTIDINE 20 MG/2 ML VIAL IV SCH ×2 (08:39→20:31)
[2020-10-28] MEDS: BARICITINIB 2 MG TABLET PO SCH (08:40)
--- NOTE | 2020-10-28 13:36 | P.PN ---
Subjective Date of Service: 10/28/20 Chief Complaint: resp failure now on vent No major changes from yesterday. Patient remain on the vent. Physical Examination - Vital Signs Temperature: 98.5 F Blood Pressure: 126/82 Pulse: 68 Respirations: 20 Pulse Ox (%): 92 - Physical Exam General: Other (Sedated on mechanical ventilation) HEENT: Other (ETT) Respiratory: Normal air movement, Other (Bilateral upper airway transmitted sounds) Cardiovascular: Regular rate/rhythm, Normal S1 S2 Gastrointestinal: Normal bowel sounds, Soft and benign, Non-distended Musculoskeletal: No swelling Neurological: Other (Sedated) Assessment And Plan - Current Problems (Diagnosis) (1) Pneumonia due to 2019 novel coronavirus Current Visit: Yes Status: Acute (2) Acute respiratory failure with hypoxia Current Visit: Yes Status: Acute (3) Hypertension Current Visit: Yes Status: Acute (4) COPD (chronic obstructive pulmonary disease) Current Visit: Yes Status: Acute Physician Review Additional Text: Problem List Acute hypoxemic respiratory failure secondary to COVID-19 pneumonia HTN mild hypernatremia chronic COPD Continue IV steroid, bronchodilators, Vitamin supplementation. On Baracitinab Intubated 10/25. Propofol, Nimbex ordered Wean vent as tolerated NGT in situ. Tube feeding. On Xarelto for DVT prophylaxis. Guarded prognosis Full code
[2020-10-28] MEDS: RIVAROXABAN 20 MG TABLET PO SCH (18:26)
[2020-10-29] MEDS: propofoL 1,000 MG/100 ML VIAL IV PRN ×5 (03:46→23:45)
[2020-10-29] MEDS: CISATRACURIUM BESYLATE 40 MG in NA CHLORIDE 0.9% 80 ML IV PRN ×4 (04:58→19:57)
[2020-10-29 05:11] LABS: Absolute Lymphocytes (CBC) 0.1 K/uL (0.7-4.9); Basophils % 0.2 % (0-1.3); Hematocrit 33.7 % (39.6-49.0); Lymphocytes % 0.6 % (15.3-44.8); MPV 10.8 fL (7.6-11.3); RBC Red Blood Cell Count 3.49 M/uL (4.33-5.43)
[2020-10-29 05:32] LABS: BUN Blood Urea Nitrogen 36 mg/dL (7-18); Bicarbonate 34 mmol/L (21-32); Ferritin 3007.1 ng/mL (26-388); Glucose Level 167 mg/dL (74-106); Magnesium 2.4 mg/dL (1.8-2.4); Phosphorus 2.5 mg/dL (2.5-4.9); Potassium 4.3 mmol/L (3.5-5.1); Sodium Level 142 mmol/L (136-145)
[2020-10-29] MEDS: INSULIN -REGULAR HUMAN 50 UNIT/0.5 ML ML SQ SCH ×4 (06:06→17:11)
[2020-10-29] MEDS: FAMOTIDINE 20 MG/2 ML VIAL IV SCH ×2 (08:07→20:18)
[2020-10-29] MEDS: METHYLPREDNISOLONE 125 MG INJ IV SCH ×3 (08:07→20:19)
[2020-10-29] MEDS: BARICITINIB 2 MG TABLET PO SCH (08:10)
--- NOTE | 2020-10-29 08:33 | RAD REPORT ---
EXAM DESCRIPTION: RAD - Chest Single View - 10/29/2020 5:54 am CLINICAL HISTORY: Intubated, Covid Chest pain. COMPARISON: Chest Single View dated 10/28/2020; Chest Single View dated 10/27/2020; Chest Single View dated 10/26/2020; Chest Single View dated 10/25/2020 FINDINGS: Portable technique limits examination quality. Bilateral pulmonary opacities have shown slight progression since yesterday's study. ET tube is appro priately positioned with tip along the superior margin of the aortic arch. Enteric tube is coiled in the stomach. Right PICC line is unchanged in position with tip in the SVC. IMPRESSION: Slight worsening in lung aeration since yesterday's study.
[2020-10-29] MEDS: MIDAZOLAM HCL 2 MG/2 ML INJ IV PRN (09:39)
[2020-10-29] MEDS: FENTANYL CITR 100 MCG/2 ML IV PRN (10:09)
--- NOTE | 2020-10-29 11:24 | P.PN ---
Subjective Date of Service: 10/29/20 Chief Complaint: resp failure now on vent No major changes from yesterday. Patient remain on the vent. Intermittently agitated and restless Physical Examination - Vital Signs Temperature: 98.1 F Blood Pressure: 168/89 Pulse: 103 Respirations: 23 Pulse Ox (%): 89 Assessment And Plan - Current Problems (Diagnosis) (1) Pneumonia due to 2019 novel coronavirus Current Visit: Yes Status: Acute (2) Acute respiratory failure with hypoxia Current Visit: Yes Status: Acute (3) Hypertension Current Visit: Yes Status: Acute (4) COPD (chronic obstructive pulmonary disease) Current Visit: Yes Status: Acute Physician Review Additional Text: Physical exam General: Sedated on mechanical ventilation HEENT: ETT Respiratory: Normal air movement, Bilateral upper airway transmitted sounds Cardiovascular: Regular rate/rhythm, Normal S1 S2 Gastrointestinal: Normal bowel sounds, Soft and benign, Non-distended Musculoskeletal: No swelling Neurological: Sedated Problem List Acute hypoxemic respiratory failure secondary to COVID-19 pneumonia HTN mild hypernatremia chronic COPD Continue IV steroid, bronchodilators, Vitamin supplementation. On Baracitinab Intubated 10/25. Propofol, Nimbex for sedation Wean vent as tolerated NGT in situ. Continue Tube feeding. On Xarelto for DVT prophylaxis. Guarded prognosis
--- NOTE | 2020-10-29 13:54 | P.PN ---
Subjective Date of Service: 10/29/20 Chief Complaint: Respiratory failure No change in patient's condition appears to be agitated and very hypoxic Review of Systems is unable to be obtained Physical Examination - Vital Signs Temperature: 97.3 F Blood Pressure: 146/83 Pulse: 91 Respirations: 20 Pulse Ox (%): 92 - Physical Exam General: Unresponsive Assessment & Plan - Problems (Diagnosis) (1) Pneumonia due to 2019 novel coronavirus Current Visit: Yes Status: Acute Plan: Patient is 65 years of age with respiratory failure chest x-ray no change diffuse bilateral changes consistent with coronavirus pneumonia white count is declining reduce the dose of IV steroids he is on Barcitinib patient is in 100% FiO2 PEEP of 10
[2020-10-29] MEDS: RIVAROXABAN 20 MG TABLET PO SCH (17:11)
[2020-10-29] MEDS: IVERMECTIN 3 MG TABLET PO SCH (17:15)
[2020-10-30] MEDS: INSULIN -REGULAR HUMAN 50 UNIT/0.5 ML ML SQ SCH ×5 (00:06→23:59)
[2020-10-30] MEDS: CISATRACURIUM BESYLATE 40 MG in NA CHLORIDE 0.9% 80 ML IV PRN ×4 (01:05→16:08)
[2020-10-30] MEDS: propofoL 1,000 MG/100 ML VIAL IV PRN ×3 (04:36→11:38)
[2020-10-30 06:32] LABS: BUN Blood Urea Nitrogen 35 mg/dL (7-18); Bicarbonate 35 mmol/L (21-32); Glucose Level 160 mg/dL (74-106); Magnesium 2.4 mg/dL (1.8-2.4); Phosphorus 2.6 mg/dL (2.5-4.9); Potassium 4.4 mmol/L (3.5-5.1); Sodium Level 143 mmol/L (136-145)
[2020-10-30 06:58] LABS: Ferritin 4041.7 ng/mL (26-388)
--- NOTE | 2020-10-30 07:39 | RAD REPORT ---
EXAM DESCRIPTION: RAD - Chest Single View - 10/30/2020 5:48 am CLINICAL HISTORY: Intubated, Covid COMPARISON: Chest Single View dated 10/29/2020; Chest Single View dated 10/28/2020; Chest Single View dated 10/27/2020; Chest Single View dated 10/26/2020 FINDINGS: Patchy multifocal airspace disease which is similar to 10/30/2020. Plate and screw fixatio n of left-sided rib fractures again noted. Endotracheal tube in satisfactory position at the level of the aortic arch. NG tube tip overlies the stomach. Cardiomegaly. IMPRESSION: Similar widespread airspace opacities consistent multifocal pneumonia. Support apparatus in stable position.
[2020-10-30] MEDS: METHYLPREDNISOLONE 125 MG INJ IV SCH ×2 (08:26→20:14)
[2020-10-30] MEDS: FAMOTIDINE 20 MG/2 ML VIAL IV SCH ×2 (08:27→20:14)
[2020-10-30] MEDS: MIDAZOLAM HCL 100 MG in NA CHLORIDE 0.9% 80 ML IV PRN (12:41)
[2020-10-30] MEDS: BARICITINIB 2 MG TABLET PO SCH (12:41)
--- NOTE | 2020-10-30 12:56 | P.PN ---
Subjective Date of Service: 10/30/20 Chief Complaint: Respiratory failure Nursing staff report agitation and desaturation on the vent this morning after the nimbex run out. Patient making more calm with synchronous vent breathing once the next was resumed. He is currently on 100% FiO2 and assist-control. Physical Examination - Vital Signs Temperature: 98.8 F Blood Pressure: 108/73 Pulse: 70 Respirations: 21 Pulse Ox (%): 94 - Physical Exam General: Other (Sedated) HEENT: Other (ETT) Respiratory: Other (Bilateral upper airway transmitted sounds) Cardiovascular: Regular rate/rhythm, Normal S1 S2, Edema (Bilateral lower extremities) Gastrointestinal: Soft and benign, Non-distended Musculoskeletal: No swelling Neurological: Other (Sedated.) Assessment And Plan - Current Problems (Diagnosis) (1) Pneumonia due to 2019 novel coronavirus Current Visit: Yes Status: Acute (2) Acute respiratory failure with hypoxia Current Visit: Yes Status: Acute (3) Hypertension Current Visit: Yes Status: Acute (4) COPD (chronic obstructive pulmonary disease) Current Visit: Yes Status: Acute Physician Review Additional Text: Physical exam General: Sedated on mechanical ventilation HEENT: ETT Respiratory: Normal air movement, Bilateral upper airway transmitted sounds Cardiovascular: Regular rate/rhythm, Normal S1 S2 Gastrointestinal: Normal bowel sounds, Soft and benign, Non-distended Musculoskeletal: No swelling Neurological: Sedated Problem List Acute hypoxemic respiratory failure secondary to COVID-19 pneumonia HTN mild hypernatremia chronic COPD Continue IV steroid, bronchodilators, Vitamin supplementation. On Baracitinab Intubated 10/25. Propofol and Nimbex for sedation Wean vent as tolerated NGT in situ. Continue Tube feeding. On Xarelto for DVT prophylaxis. Guarded prognosis
--- NOTE | 2020-10-30 15:04 | P.PN ---
Subjective Date of Service: 10/30/20 Chief Complaint: Respiratory failure No change in patient's condition he continues to remain very hypoxic 100% FiO2 and requiring IV paralytic unable to wean down the dose as he gets very agitated and has significant desaturation tolerating tube feeds CRP is elevated Review of Systems is unable to be obtained Physical Examination - Vital Signs Temperature: 98.8 F Blood Pressure: 158/97 Pulse: 111 Respirations: 20 Pulse Ox (%): 92 - Physical Exam General: Comatose Assessment & Plan - Problems (Diagnosis) (1) Pneumonia due to 2019 novel coronavirus Current Visit: Yes Status: Acute Plan: Respiratory failure continues to remain on 100% FiO2 unable to wean down his paralytics or sedation chest x-ray no change diffuse changes CRP is gone up again he is on steroids and Barcitinib white count is decreased slightly labs reviewed ferritin is over 4000 prognosis very poor consider DNR
[2020-10-30] MEDS: RIVAROXABAN 20 MG TABLET PO SCH (18:04)
[2020-10-30] MEDS: CISATRACURIUM BESYLATE 100 MG in NA CHLORIDE 0.9% 200 ML IV PRN (20:16)
[2020-10-31] MEDS: MIDAZOLAM HCL 100 MG in NA CHLORIDE 0.9% 80 ML IV PRN ×2 (01:26→18:06)
[2020-10-31 05:22] LABS: Absolute Lymphocytes (CBC) 0.1 K/uL (0.7-4.9); Basophils % 0.3 % (0-1.3); Hematocrit 36.6 % (39.6-49.0); Lymphocytes % 0.9 % (15.3-44.8); MPV 10.4 fL (7.6-11.3); RBC Red Blood Cell Count 3.78 M/uL (4.33-5.43)
[2020-10-31] MEDS: INSULIN -REGULAR HUMAN 50 UNIT/0.5 ML ML SQ SCH ×3 (06:00→18:00)
[2020-10-31 06:12] LABS: BUN Blood Urea Nitrogen 43 mg/dL (7-18); Bicarbonate 35 mmol/L (21-32); Ferritin 4401.9 ng/mL (26-388); Glucose Level 180 mg/dL (74-106); Magnesium 2.5 mg/dL (1.8-2.4); Phosphorus 3.1 mg/dL (2.5-4.9); Potassium 4.7 mmol/L (3.5-5.1); Sodium Level 145 mmol/L (136-145)
[2020-10-31] MEDS: CISATRACURIUM BESYLATE 100 MG in NA CHLORIDE 0.9% 200 ML IV PRN ×2 (06:14→18:06)
[2020-10-31] MEDS: METHYLPREDNISOLONE 125 MG INJ IV SCH ×2 (08:15→21:22)
[2020-10-31] MEDS: BARICITINIB 2 MG TABLET PO SCH (08:16)
[2020-10-31] MEDS: FAMOTIDINE 20 MG/2 ML VIAL IV SCH ×2 (08:16→21:21)
--- NOTE | 2020-10-31 11:01 | P.PN ---
Subjective Date of Service: 10/31/20 Chief Complaint: Respiratory failure No major changes from yesterday. Patient is stable on the vent \ He is currently on 90% FiO2 and assist-control. Physical Examination - Vital Signs Temperature: 97.2 F Blood Pressure: 168/105 Pulse: 112 Respirations: 23 Pulse Ox (%): 93 - Physical Exam General: Other (On the vent.) Assessment And Plan - Current Problems (Diagnosis) (1) Pneumonia due to 2019 novel coronavirus Current Visit: Yes Status: Acute (2) Acute respiratory failure with hypoxia Current Visit: Yes Status: Acute (3) Hypertension Current Visit: Yes Status: Acute (4) COPD (chronic obstructive pulmonary disease) Current Visit: Yes Status: Acute - Plan Continue IV steroid, bronchodilators., Vitamin supplementation. Pharmacy to evaluate for Remdesivir therapy. Pulmonary input appreciated. Dr. Tavarez is assisting with management. Patient currently on CPAP. Monitor inflammatory markers. Consult to pulmonary. Continue home antihypertensives. Continue Lipitor. Physician Review Additional Text: Physical exam General: Sedated on mechanical ventilation HEENT: ETT Respiratory: Normal air movement, Bilateral upper airway transmitted sounds Cardiovascular: Regular rate/rhythm, Normal S1 S2 Gastrointestinal: Normal bowel sounds, Soft and benign, Non-distended Musculoskeletal: No swelling Neurological: Sedated Problem List Acute hypoxemic respiratory failure secondary to COVID-19 pneumonia HTN mild hypernatremia chronic COPD Continue IV steroid, bronchodilators, Vitamin supplementation. On Baracitinab Intubated 10/25. Propofol and Nimbex for sedation Wean vent as tolerated NGT in situ. Continue Tube feeding. On Xarelto for DVT prophylaxis. Guarded prognosis
--- NOTE | 2020-10-31 13:53 | RAD REPORT ---
EXAM DESCRIPTION: RAD - Chest Single View - 10/31/2020 12:19 pm CLINICAL HISTORY: resp failure Chest pain. COMPARISON: Chest Single View dated 10/30/2020; Chest Single View dated 10/29/2020; Chest Single View dated 10/28/2020; Chest Single View dated 10/27/2020 FINDINGS: Portable technique limits examination quality. Tip of the endotracheal tube is above the level of the superior aortic arch. Enteric tube coils in th e stomach. Right-sided PICC line has tip in the right atrium.Bilateral pulmonary opacities appear fra ctionally improved since yesterday's study. The heart is upper limit normal in size.
[2020-10-31] MEDS: IVERMECTIN 3 MG TABLET PO SCH (18:31)
[2020-10-31] MEDS: RIVAROXABAN 20 MG TABLET PO SCH (18:31)
[2020-11-01] MEDS: MIDAZOLAM HCL 100 MG in NA CHLORIDE 0.9% 80 ML IV PRN ×2 (04:35→14:58)
[2020-11-01] MEDS: CISATRACURIUM BESYLATE 100 MG in NA CHLORIDE 0.9% 200 ML IV PRN ×2 (05:05→20:53)
[2020-11-01 05:37] LABS: Absolute Lymphocytes (CBC) 0.1 K/uL (0.7-4.9); Basophils % 0.3 % (0-1.3); Hematocrit 36.6 % (39.6-49.0); Lymphocytes % 0.8 % (15.3-44.8); MPV 10.1 fL (7.6-11.3); RBC Red Blood Cell Count 3.68 M/uL (4.33-5.43)
[2020-11-01 05:43] LABS: BUN Blood Urea Nitrogen 43 mg/dL (7-18); Bicarbonate 35 mmol/L (21-32); Glucose Level 199 mg/dL (74-106); Potassium 5.4 mmol/L (3.5-5.1); Sodium Level 147 mmol/L (136-145)
[2020-11-01] MEDS: INSULIN -REGULAR HUMAN 50 UNIT/0.5 ML ML SQ SCH ×4 (06:00→18:00)
[2020-11-01] MEDS: METHYLPREDNISOLONE 125 MG INJ IV SCH ×2 (08:07→20:38)
[2020-11-01] MEDS: FAMOTIDINE 20 MG/2 ML VIAL IV SCH (08:07)
[2020-11-01] MEDS: BARICITINIB 2 MG TABLET PO SCH (08:08)
--- NOTE | 2020-11-01 08:45 | RAD REPORT ---
EXAM DESCRIPTION: [facility] Single View11/01/2020 6:55 am CLINICAL HISTORY: Respiratory failure COMPARISON: October 31, 2020 FINDINGS: Minimal improvement in bilateral pulmonary opacities. There may be small left pleural eff usion Heart is mildly enlarged. Endotracheal tube has its tip at the level of aortic arch. Nasogastric tube within stomach. PICC line place. IMPRESSION: Minimal improvement in bilateral pulmonary opacities
[2020-11-01 08:49] LABS: Blood Morphology Comment NOT SEEN (NOT SEEN); Platelet Estimate ADEQ
[2020-11-01] MEDS ORDERED: SOD POLYSTYREN SUL 15 GM/60 ML UCUP PO ONE (10:14)
--- NOTE | 2020-11-01 10:16 | P.PN ---
Subjective Date of Service: 11/01/20 Chief Complaint: Respiratory failure No change he continues to require paralytics and high doses of IV Versed significant desaturation if the doses of paralytics are decreased over his oxygen requirements are declining Review of Systems is unable to be obtained Physical Examination - Vital Signs Temperature: 97.2 F Blood Pressure: 103/75 Pulse: 109 Respirations: 20 Pulse Ox (%): 95 - Physical Exam General: Comatose Assessment & Plan - Problems (Diagnosis) (1) Pneumonia due to 2019 novel coronavirus Current Visit: Yes Status: Acute Plan: Respiratory failure oxygen requirements have declined to 80% we will try and lower the paralytics every day he is on high doses of IV Versed also becoming hyponatremic needs free water replacements also hyperkalemic white count elevated chest x-ray improving continue to titrate O2 down
--- NOTE | 2020-11-01 11:05 | P.PN ---
Subjective Date of Service: 11/01/20 Chief Complaint: Respiratory failure Patient is stable on the vent FiO2 is being weaned down slowly. He is currently on 80% FiO2. Physical Examination - Vital Signs Temperature: 97.2 F Blood Pressure: 103/75 Pulse: 109 Respirations: 20 Pulse Ox (%): 95 - Physical Exam General: Other (S) Assessment And Plan - Current Problems (Diagnosis) (1) Pneumonia due to 2019 novel coronavirus Current Visit: Yes Status: Acute (2) Acute respiratory failure with hypoxia Current Visit: Yes Status: Acute (3) Hypertension Current Visit: Yes Status: Acute (4) COPD (chronic obstructive pulmonary disease) Current Visit: Yes Status: Acute - Plan Continue IV steroid, bronchodilators., Vitamin supplementation. Pharmacy to evaluate for Remdesivir therapy. Pulmonary input appreciated. Dr. Tavarez is assisting with management. Patient currently on CPAP. Monitor inflammatory markers. Consult to pulmonary. Continue home antihypertensives. Continue Lipitor. Physician Review Additional Text: Physical exam General: Sedated on mechanical ventilation HEENT: ETT Respiratory: Normal air movement, Bilateral upper airway transmitted sounds Cardiovascular: Regular rate/rhythm, Normal S1 S2 Gastrointestinal: Normal bowel sounds, Soft and benign, Non-distended Musculoskeletal: No swelling Neurological: Sedated Problem List Acute hypoxemic respiratory failure secondary to COVID-19 pneumonia HTN Hypernatremia chronic COPD Hyperkalemia Continue IV steroid, bronchodilators, Vitamin supplementation. Completed Baracitinab Intubated 10/25. Propofol and Nimbex for sedation Wean FiO2 as tolerated NGT in situ. Continue Tube feeding. Kayexalate for hyperkalemia. Increase Free water flushes to treat hyperkalemia and hypernatremia. Use low-potassium tube feeding. Monitor renal function On Xarelto for DVT prophylaxis. Guarded prognosis
[2020-11-01 17:20] LABS: Arterial Blood Carboxyhemoglob 1.2 % (0-1.5); Blood Gas Oxyhemoglobin 88.9 % (94-97); Blood O2 Saturation 91.1 % (92-98.5)
[2020-11-01] MEDS: RIVAROXABAN 20 MG TABLET PO SCH (18:22)
[2020-11-02] MEDS: ACETAMINOPHEN 500 MG TAB PO PRN ×2 (00:29→22:08)
[2020-11-02] MEDS: MIDAZOLAM HCL 100 MG in NA CHLORIDE 0.9% 80 ML IV PRN ×3 (01:13→21:59)
[2020-11-02 05:23] LABS: Albumin 1.7 g/dL (3.4-5.0); BUN Blood Urea Nitrogen 52 mg/dL (7-18); Bicarbonate 37 mmol/L (21-32); Glucose Level 190 mg/dL (74-106); Potassium 4.8 mmol/L (3.5-5.1); Sodium Level 145 mmol/L (136-145)
[2020-11-02] MEDS: INSULIN -REGULAR HUMAN 50 UNIT/0.5 ML ML SQ SCH ×4 (06:06→18:01)
--- NOTE | 2020-11-02 07:23 | RAD REPORT ---
EXAM DESCRIPTION: RAD - Chest Single View - 11/02/2020 5:51 am CLINICAL HISTORY: resp failure COMPARISON: November 01 TECHNIQUE: AP portable chest image was obtained 11/02/2020 5:51 am . FINDINGS: ET tube tip is top of the aortic arch, 4 cm above the brady, well positioned. NG tube is curled in the stomach similar to prior day imaging. Lung parenchymal volume is low which accentuates lung parenchymal opacification. Lung parenchymal dis ease has probably show no significant change since the November 01 study. Left pleural and parenchymal disease remains most pronounced. Heart and vasculature are normal. No measurable pleural effusion and no pneumothorax. No acute bony abnormality seen. No acute aortic findings suspected. IMPRESSION: Shallow inspiration film shows a primarily left lung base pleural and parenchymal proces s not substantially different from prior day imaging. ET tube in good position. NG tube in good position.
[2020-11-02] MEDS: METHYLPREDNISOLONE 125 MG INJ IV SCH ×2 (07:41→20:12)
[2020-11-02 08:08] VITALS: BMI 26.2
[2020-11-02] MEDS: CISATRACURIUM BESYLATE 100 MG in NA CHLORIDE 0.9% 200 ML IV PRN (10:02)
--- NOTE | 2020-11-02 11:13 | P.PN ---
Subjective Date of Service: 11/02/20 Chief Complaint: Respiratory failure Patient is stable on the vent FiO2 is being weaned down slowly. He is currently on 70% FiO2. Physical Examination - Vital Signs Temperature: 97.1 F Blood Pressure: 149/98 Pulse: 117 Respirations: 32 Pulse Ox (%): 90 Assessment And Plan - Current Problems (Diagnosis) (1) Pneumonia due to 2019 novel coronavirus Current Visit: Yes Status: Acute (2) Acute respiratory failure with hypoxia Current Visit: Yes Status: Acute (3) Hypertension Current Visit: Yes Status: Acute (4) COPD (chronic obstructive pulmonary disease) Current Visit: Yes Status: Acute Physician Review Additional Text: Physical exam General: Sedated on mechanical ventilation HEENT: ETT Respiratory: Normal air movement, Bilateral upper airway transmitted sounds Cardiovascular: Regular rate/rhythm, Normal S1 S2 Gastrointestinal: Normal bowel sounds, Soft and benign, Non-distended Musculoskeletal: Bilateral upper and lower extremity edema Neurological: Sedated Problem List Acute hypoxemic respiratory failure secondary to COVID-19 pneumonia HTN Hypernatremia chronic COPD Hyperkalemia Continue IV steroid, bronchodilators, Vitamin supplementation. Completed Baracitinab Intubated 10/25. Propofol and Nimbex for sedation. Patient more dependent on Nimbex for sedation and to keep him in sync with the ventilator Slowly weaning down FiO2. NGT in situ. Continue Tube feeding. Hyperkalemia corrected Free water flushes to treat hyperkalemia and hypernatremia. Use low-potassium tube feeding. Monitor renal function On Xarelto for DVT prophylaxis. Guarded prognosis
[2020-11-02] MEDS: FENOFIBRATE 160 MG TAB PO SCH (13:21)
[2020-11-02] MEDS: RIVAROXABAN 20 MG TABLET PO SCH (18:01)
[2020-11-03] MEDS: INSULIN -REGULAR HUMAN 50 UNIT/0.5 ML ML SQ SCH ×4 (00:15→17:21)
[2020-11-03 05:06] LABS: Absolute Lymphocytes (CBC) 0.2 K/uL (0.7-4.9); Basophils % 0.1 % (0-1.3); Hematocrit 30.7 % (39.6-49.0); Lymphocytes % 1.1 % (15.3-44.8); MPV 9.9 fL (7.6-11.3); RBC Red Blood Cell Count 3.13 M/uL (4.33-5.43)
[2020-11-03 05:13] LABS: Albumin 1.5 g/dL (3.4-5.0); BUN Blood Urea Nitrogen 42 mg/dL (7-18); Bicarbonate 38 mmol/L (21-32); Glucose Level 191 mg/dL (74-106); Phosphorus 2.6 mg/dL (2.5-4.9); Potassium 4.4 mmol/L (3.5-5.1); Sodium Level 146 mmol/L (136-145)
[2020-11-03] MEDS: CISATRACURIUM BESYLATE 100 MG in NA CHLORIDE 0.9% 200 ML IV PRN (05:43)
[2020-11-03] MEDS: MIDAZOLAM HCL 100 MG in NA CHLORIDE 0.9% 80 ML IV PRN ×2 (05:43→14:44)
--- NOTE | 2020-11-03 07:23 | P.PN ---
Subjective Date of Service: 11/03/20 Chief Complaint: Respiratory failure Subjective: No new changes (no acute events overnight. pt has been difficult to wean paralytic/sedation, FiO2: 80%) Review of Systems is unable to be obtained Physical Examination - Vital Signs Temperature: 97.8 F Blood Pressure: 126/86 Pulse: 114 Respirations: 25 Pulse Ox (%): 90 Assessment & Plan Physician Review Additional Text: Physical exam General: Sedated on mechanical ventilation HEENT: ETT in place Respiratory: Bilateral upper airway transmitted sounds Cardiovascular: sinus tachycardia, no murmur Gastrointestinal: soft, non-distended Musculoskeletal: Bilateral upper and lower extremity edema Neurological: Sedated Problem List Acute hypoxemic respiratory failure secondary to COVID-19 pneumonia HTN Hypernatremia chronic COPD Hyperkalemia Continue IV steroid, bronchodilators, Vitamin supplementation. Completed Baracitinab Intubated 10/25. Propofol and Nimbex for sedation. Patient more dependent on Nimbex for sedation Slowly weaning down FiO2. has been difficult and has had minimal change NGT, continue tube feeds Hyperkalemia corrected Free water flushes to treat hyperkalemia and hypernatremia. Use low-potassium tube feeding. Monitor renal function On Xarelto for DVT prophylaxis. Guarded prognosis discussed with on 11/03, wants to continue with full code Time Spent Managing Pts Care (In Minutes): 40
--- NOTE | 2020-11-03 07:46 | RAD REPORT ---
EXAM DESCRIPTION: [facility] Single View11/03/2020 7:10 am CLINICAL HISTORY: Chest pain COMPARISON: November 02, 2020 FINDINGS: Endotracheal tube has its tip at the level of the aortic arch. Nasogastric tube coiled the stomach. The tip lies a few centimeters from the GE junction. No significant change in the bilateral pulmonary opacities. Heart is mildly enlarged. Curvilinear density overlies the lateral right hemithorax IMPRESSION: No significant change bilateral pulmonary opacities Curvilinear density overlies the right lateral hemithorax probably a skin fold rather than pneumothor ax. This can be monitored on subsequent exam
[2020-11-03] MEDS: FENTANYL CITR 100 MCG/2 ML IV PRN (07:59)
[2020-11-03] MEDS: METHYLPREDNISOLONE 125 MG INJ IV SCH ×2 (08:23→20:21)
[2020-11-03] MEDS: FENOFIBRATE 160 MG TAB PO SCH (08:23)
--- NOTE | 2020-11-03 08:23 | P.PN ---
Subjective Date of Service: 11/03/20 Chief Complaint: Respiratory failure Patient's condition is good patient's condition has deteriorated he has become more hypoxic 100% FiO2 PEEP is also increased he requires significant amount of paralytics and sedation Review of Systems is unable to be obtained Physical Examination - Vital Signs Temperature: 97.8 F Blood Pressure: 126/86 Pulse: 114 Respirations: 30 Pulse Ox (%): 79 - Physical Exam General: Unresponsive Assessment & Plan - Problems (Diagnosis) (1) Pneumonia due to 2019 novel coronavirus Current Visit: Yes Status: Acute Plan: Respiratory failure respiratory failure condition has worsened to discussed with family members regarding DNR chest x-ray no pneumothorax mild hyponatremia mild hyponatremia consideration given consideration also be given to withdrawal of care has patient has not made any progress
[2020-11-03] MEDS: ACETAMINOPHEN 500 MG TAB PO PRN (17:21)
[2020-11-03] MEDS: RIVAROXABAN 20 MG TABLET PO SCH (17:21)
[2020-11-04] MEDS ORDERED: NA CHLORIDE 0.9% 1,000 ML ONE (00:33)
[2020-11-04] MEDS: INSULIN -REGULAR HUMAN 50 UNIT/0.5 ML ML SQ SCH ×3 (00:46→12:33)
[2020-11-04] MEDS ORDERED: NOREPINEPHRINE 4 MG in D5W 250 ML IV PRN (01:40)
[2020-11-04] MEDS ORDERED: NOREPINEPHRINE 4mg/D5W 250mL 4 MG/250 ML BAG IV ONE (02:03)
[2020-11-04] MEDS: FENTANYL CITR 100 MCG/2 ML IV PRN (02:57)
[2020-11-04] MEDS: CISATRACURIUM BESYLATE 100 MG in NA CHLORIDE 0.9% 200 ML IV PRN ×2 (04:00→12:33)
[2020-11-04] MEDS: MIDAZOLAM HCL 100 MG in NA CHLORIDE 0.9% 80 ML IV PRN (04:54)
[2020-11-04 05:20] LABS: Absolute Lymphocytes (CBC) 0.1 K/uL (0.7-4.9); Basophils % 0.3 % (0-1.3); Hematocrit 29.2 % (39.6-49.0); Lymphocytes % 0.9 % (15.3-44.8); MPV 9.9 fL (7.6-11.3); RBC Red Blood Cell Count 2.89 M/uL (4.33-5.43)
[2020-11-04 06:14] LABS: Magnesium 2.5 mg/dL (1.8-2.4); Potassium 5.1 mmol/L (3.5-5.1)
--- NOTE | 2020-11-04 07:27 | RAD REPORT ---
EXAM DESCRIPTION: RAD - Chest Single View - 11/04/2020 5:40 am CLINICAL HISTORY: resp failure COMPARISON: Chest Single View dated 11/03/2020; Chest Single View dated 11/02/2020; Chest Single View dated 11/01/2020; Chest Single View dated 10/31/2020 FINDINGS: Large right-sided pneumothorax with mediastinal shift to the left concerning for tension p neumothorax. Widespread airspace disease in the left with possible some superimposed atelectasis as a result of tension pneumothorax. Cardiomegaly. Endotracheal tube at the aortic arch. NG tube terminat es at the distal esophagus. Right subclavian approach PICC with tip overlying the SVC. IMPRESSION: 1. Large right-sided tension pneumothorax. 2. Increased opacification of the left lung may be a combination of known pneumonia and atelectasis. 3. The NG tube terminates in the distal esophagus and needs to be advanced. Discussed #1 with nurse Demarco in the ICU at 0722 on 11/04/20. Message sent to Dr. Tavarez at 0718 on 11/04/20
--- NOTE | 2020-11-04 07:42 | P.PN ---
Subjective Date of Service: 11/04/20 Chief Complaint: Respiratory failure Subjective: Worsening (requiring initiation of pressors overnight, not responsive to fluid. CXR this morning with new R sided tension pneumothorax. Dr. Meyers called for chest tube placement. informed, wants "everything done") Review of Systems 10-point ROS is otherwise unremarkable Physical Examination - Vital Signs Temperature: 97.9 F Blood Pressure: 93/58 Pulse: 70 Respirations: 30 Pulse Ox (%): 89 Assessment & Plan Physician Review Additional Text: Physical exam General: Sedated on mechanical ventilation HEENT: ETT in place Respiratory: Bilateral upper airway transmitted sounds, absent airway sounds at R base Cardiovascular: sinus tachycardia, no murmur Gastrointestinal: soft, non-distended Musculoskeletal: Bilateral upper and lower extremity edema Neurological: Sedated Problem List Acute hypoxemic respiratory failure secondary to COVID-19 pneumonia R sided tension pneumothorax (developed 11/04) HTN Hypernatremia chronic COPD Hyperkalemia Continue IV steroid, bronchodilators, Vitamin supplementation. Completed Baracitinab Intubated 10/25. Propofol and Nimbex for sedation. Patient more dependent on Nimbex for sedation NGT, tube feeds Free water flushes to treat hyperkalemia and hypernatremia. Use low-potassium tube feeding. levophed started overnight 11/03-11/04 tension pneumo developed on r-side on 11/04, general surgery -dr meyers consulted for chest tube placement On Xarelto for DVT prophylaxis. Guarded prognosis discussed with , wants to continue with full code Time Spent Managing Pts Care (In Minutes): 50
--- NOTE | 2020-11-04 08:24 | RAD REPORT ---
EXAM DESCRIPTION: RAD - Chest Single View - 11/04/2020 8:16 am CLINICAL HISTORY: chest tube placement COMPARISON: Chest Single View dated 11/04/2020; Chest Single View dated 11/03/2020; Chest Single View d ated 11/02/2020; Chest Single View dated 11/01/2020 FINDINGS: Interval placement of a right-sided chest tube with tip near the right lung apex and re-ex pansion of the right lung. Subcutaneous gas noted along the right chest wall. Patchy bilateral airspa ce disease is similar to the radiograph from 11/03/2020 per The mediastinum is now midline. Endotrach eal tube at the level of the aortic arch. NG tube overlying the stomach. Plate screw fixation of rib fractures. Embolization coils in left upper quadrant. IMPRESSION: Interval placement of a right-sided chest tube with re-expansion of the right lung, no r esidual pneumothorax, and resolution of the mediastinal shift.
--- NOTE | 2020-11-04 08:52 | P.OP ---
Preoperative diagnosis: RIGHT Tension Pneumothorax Postoperative diagnosis: RIGHT Tension Pneumothorax Primary procedure: Placement of RIGHT Thoracostomy Tube Anesthesia: Local 1% lidocaine Estimated blood loss: <2cc Specimen: none Findings: air immediately returned Complications: None Drain(s): Other (RIGHT Thoracostomy Tube) Transferred to: ICU Condition: Critical
[2020-11-04] MEDS: METHYLPREDNISOLONE 125 MG INJ IV SCH (09:05)
[2020-11-04] MEDS: FENOFIBRATE 160 MG TAB PO SCH (09:05)
[2020-11-04 09:40] VITALS: TEMP 99.5
--- NOTE | 2020-11-04 10:22 | CON ---
Date of Consultation: 11/04/2020 Brief History Of Present Illness: The patient is a 65-year-old male, who presented to the hospital o n approximately 10/18/2020 with history of COPD, hypertension, hypercholesterolemia with worsening pr ogressive shortness of breath beginning 4 days prior to his admission to the ER. He had a nonproduct jane cough, dyspnea on exertion, and dyspnea at rest. At that point, he was found to be hypoxic in th e ER, was placed on a non-rebreather and had subsequently been diagnosed with COVID positive pneumoni a. He had not received COVID vaccine. He had been having significant decompensation throughout his time in the hospital and as such, he was admitted to the ICU, ultimately intubated and found to have a large right tension pneumothorax today on imaging. As such, I am consulted for emergency placement of a right chest thoracostomy tube emergently. Past Medical History: Significant for hypertension, hyperlipidemia, COPD. Past Surgical History: By report, he has had surgery of his left ribs. Allergies: NO KNOWN DRUG ALLERGIES. Social History: He has a former smoking history. Alcohol recreationally used. No recreational drug use. Information was obtained from the chart as the patient is currently intubated and not responsi ve. Review of Systems: Ten-point review of systems unable to obtain. Physical Examination: Vital Signs: At the time of my examination; the patient's BMI was 26. His heart rate was 70, blood pressure 93/58, respiratory rate 30, temperature 97.9. He was 89% down to 84% on 100% oxygen and he was mechanically ventilated. General: He was sedated, intubated. HEENT: Otherwise normocephalic. Tubes and lines in place. Neck: Supple without JVD. Chest: Has decreased expansion on the right. There is tympany on the right and absent breath sounds on the right. Skin: Otherwise warm and dry. Laboratory Data: His laboratory exam revealed a white blood cell count of 14.4, hemoglobin 9.5, brian tocrit 29.2, platelet count was 179. His sodium 140, potassium 5.1, chloride 99, carbon dioxide 33, BUN 73, creatinine 1.69. His glucose was 265. His procalcitonin was 0.17. He had imaging, which in cluded a chest x-ray which was officially read on 11/04 as large right-sided tension pneumothorax, in creased opacification of the left lung may be combination of known pneumonia and atelectasis, NG tube terminates in the distal esophagus and needs to be advanced. Assessment And Plan: This is a 65-year-old male with COVID pneumonia and a large right tension pneum othorax. The patient's family had been informed the situation. The patient's family was contacted, given the update that the patient had a large right tension pneumothorax and chest tube placement was discussed with them. They agreed to proceed as indicated. As such, I will place a chest tube at this time. Thank you for this interesting consult. SANDEEP/REENA Voice ID: [id number] Report ID: [id number]
--- NOTE | 2020-11-04 10:58 | OP ---
Date of Procedure: 11/04/2020 Surgeon: Francisca Meyers MD, Preoperative Diagnosis: Right tension pneumothorax. Postoperative Diagnosis: Right tension pneumothorax. Procedure Performed: Placement of right thoracostomy tube. Anesthesia: Local 1% lidocaine used. Estimated Blood Loss: Less than 2 mL. Specimen: None. Findings: Air immediately returned. Complications: None. Drains: Right Thal thoracostomy tube. Condition: The patient remained in ICU in critical condition throughout the procedure. Procedure In Detail: After informed consent was obtained, the patient was prepped and draped in the usual sterile fashion after adequate anesthesia was achieved with 1% lidocaine on the right midaxilla ry line. I anesthetized the skin, made a small em incision and using the introducer set, I cannula francisca the right thoracic cavity. Air bubbles were noted into the finder needle. I then advanced the w mendy into the tract and removed the needle at this point. I then performed sequential dilatation over the wire using Seldinger technique going over the rib approximately 5th and 6th intercostal space. After dilatation was performed, I advanced a Thal thoracostomy tube posterior cranially and air immed iately was returned from this. I hooked the Pneumovax system up and immediately saw minimal amount o f pleural fluid and the tube appeared to be functional at this point. I then put a sterile dressing on top after applying a suture to the skin and securing the tube with the same said suture, which was a 2-0 nylon suture and sterile dressing placed over top. The patient tolerated the procedure well w ithout evidence of complication, remained in the ICU in critical condition throughout the procedure. All counts were correct at the end of the case. SANDEEP/REENA Voice ID: [id number] Report ID: [id number]
--- NOTE | 2020-11-04 11:36 | P.PN ---
Subjective Date of Service: 11/04/20 Chief Complaint: Respiratory failure Patient is not doing well he developed pneumothorax on the right side emergency chest tube was inserted at 6:00 this morning currently stable on paralytics Review of Systems is unable to be obtained Physical Examination - Vital Signs Temperature: 99.5 F Blood Pressure: 130/64 Pulse: 64 Respirations: 30 Pulse Ox (%): 98 - Physical Exam General: Comatose Assessment & Plan - Problems (Diagnosis) (1) Pneumonia due to 2019 novel coronavirus Current Visit: Yes Status: Acute Plan: Respiratory failure patient has a right-sided chest tube chest is fully expanded renal function is worse white count declining currently 100% FiO2 prognosis is very poor on propofol and paralytic drugs start on IV fluids
[2020-11-04] MEDS ORDERED: NACHLORIDE 0.45% 1,000 ML IV SCH (12:00)
[2020-11-04 15:23] VITALS: BP 44/32
[2020-11-04 15:32] VITALS: O2SAT 96
[2020-11-04] MEDS ORDERED: EPINEPHrine 1 MG/10 ML SYR IV ONE (16:46)
--- NOTE | 2020-11-04 20:30 | P.DS ---
Admission Date: 10/18/20 Discharge Date: 11/04/20 Disposition: Discharge Condition: Reason for Admission: Respiratory failure Consultations: Pulmonology - Dr. Tavarez General Surgery - Dr. Meyers Procedures: Problem List Acute hypoxemic respiratory failure secondary to COVID-19 pneumonia R sided tension pneumothorax (developed 11/04) HTN Hypernatremia chronic COPD Hyperkalemia Brief History of Present Illness: 65-year-old gentleman with a history of COPD, hypertension and hypercholesteremia presented to the emergency department with a complaint of progressive shortness of about 4 days duration. Patient reports nonproductive cough, dyspnea on exertion progressing to dyspnea at rest. Patient found to be hypoxic in the ED and required 100% non-rebreather mask for his oxygen saturation to stay above 90%. Oxygen saturation was 45% on room air on arrival. Chest x-ray demonstrated diffuse bilateral infiltrates. Patient tested p ositive for COVID 19. He has not recieved the COVID vaccine. Patient has SIRS with leukocytosis and tachycardia. He is admitted for further management. Hospital Course: Patient had gradual decline and eventually intubated on 10/25. He did not have any improvement and continued to worsen despite treatment with steroids, vitamin supplementation, baracitinab, anticoagulation. Overnight he became more hypotensive and was started on levophed. On morning of 11/04 he was found to have a large tension pneumothorax. General surgery was consulted and immediately placed a chest tube with improvement in the patient's vitals temporarily. He continued to worsen and a code blue was called due to loss of pulse. He was able to be resuscitated, but remained very hypoxic and hypotensive. Upon further discussion with his , she decided to withdraw care. Patient passed at 1346.. Vital Signs/Physical Exam: Temp Pulse Resp BP Pulse Ox 99.5 F 19 L 30 H 44/32 L 59 L 11/04/20 11:36 11/04/20 13:45 11/04/20 13:45 11/04/20 13:45 11/04/20 13:15 General: Other () Laboratory Data at Discharge: WBC 14.40 K/uL (4.3-10.9) H D 11/04/20 04:47 Hgb 9.5 g/dL (13.6-17.9) L 11/04/20 04:47 Hct 29.2 % (39.6-49.0) L 11/04/20 04:47 Plt Count 178 K/uL (152-406) 11/04/20 04:47 PT 11.7 SECONDS (9.5-12.5) 10/18/20 09:20 INR 1.02 10/18/20 09:20 Sodium 140 mmol/L (136-145) 11/04/20 04:47 Potassium 5.1 mmol/L (3.5-5.1) 11/04/20 04:47 BUN 73 mg/dL (7-18) H D 11/04/20 04:47 Creatinine 1.69 mg/dL (0.55-1.3) H 11/04/20 04:47 Glucose 265 mg/dL (74-106) H 11/04/20 04:47 Phosphorus 2.6 mg/dL (2.5-4.9) 11/03/20 04:43 Magnesium 2.5 mg/dL (1.8-2.4) H 11/04/20 04:47 Total Bilirubin 0.7 mg/dL (0.2-1.0) 10/24/20 05:01 AST 52 U/L (15-37) H 10/24/20 05:01 ALT 52 U/L (12-78) 10/24/20 05:01 Alkaline Phosphatase 138 U/L (45-117) H 10/24/20 05:01 Triglycerides 72 mg/dL (<150) 10/19/20 02:44 Cholesterol 97 mg/dL (<200) 10/19/20 02:44 HDL Cholesterol 55 mg/dL (40-60) 10/19/20 02:44 Cholesterol/HDL Ratio 1.76 10/19/20 02:44 Home Medications: Amlodipine [Norvasc*] 1 tab PO DAILY 10/18/20 Atorvastatin Calcium 1 tab PO DAILY 10/18/20 Benazepril HCl 1 tab PO DAILY 10/18/20 Fluticasone [Flonase 50MCG Nasal [place]*] 1 spray SEECOM 10/18/20 Followup: Jeni Whyte, PORTABLE IRRIGATION OPERATOR [Primary Care Provider] - Time spent managing pt's care (in minutes): 60
== END 2020-11-04 16:00 | disposition expired | DRG 207 ==
LOC: ER 07:43 → ERHOLD 11:20 → 4TH 10-19 14:35 → 3RD-ICU 10-20 03:25 → 4TH 10-22 06:25 → 3RD-ICU 10-25 05:37
PROVIDERS: ADMIT Internal Medicine; ATTEND Hospitalist
PROC: 5A09357 Assistance with Respiratory Ventilation, Less than 24 Consecutive Hours, Continuous Positive Airway Pressure (ICD-10-PCS; 2020-10-18)
PROC: 5A1955Z Respiratory Ventilation, Greater than 96 Consecutive Hours (ICD-10-PCS; principal; 2020-10-25)
PROC: 0BH17EZ Insertion of Endotracheal Airway into Trachea, Via Natural or Artificial Opening (ICD-10-PCS; 2020-10-25)
PROC: 02HV33Z Insertion of Infusion Device into Superior Vena Cava, Percutaneous Approach (ICD-10-PCS; 2020-10-25)
PROC: 0W9930Z Drainage of Right Pleural Cavity with Drainage Device, Percutaneous Approach (ICD-10-PCS; 2020-11-04)
PROC: 5A2204Z Restoration of Cardiac Rhythm, Single (ICD-10-PCS; 2020-11-04)
PROC: 5A12012 Performance of Cardiac Output, Single, Manual (ICD-10-PCS; 2020-11-04)
DX: U07.1 COVID-19 (principal); J12.82 Pneumonia due to coronavirus disease 2019; J96.01 Acute respiratory failure with hypoxia; J93.0 Spontaneous tension pneumothorax; E43 Unspecified severe protein-calorie malnutrition; E87.0 Hyperosmolality and hypernatremia; J44.9 Chronic obstructive pulmonary disease, unspecified; E78.5 Hyperlipidemia, unspecified; E78.00 Pure hypercholesterolemia, unspecified; I10 Essential (primary) hypertension; E87.5 Hyperkalemia; Z87.891 Personal history of nicotine dependence; Z78.1 Physical restraint status; Z68.26 Body mass index [BMI] 26.0-26.9, adult
CPT/HCPCS: 36415; 36569; 71045; 71275; 74018; 80048; 80053; 80061; 80069; 80076; 81003; 81015; 82728; 82805; 82947; 83605; 83735; 83880; 84100; 84132; 84145; 84484; 85025; 85379; 85610; 86140; 87040; 93005; 94002; 94003; 94660; 94760; 96365; 96366; 96375; 99291; 99292; J0171; J0330; J0456; J0696; J1630; J1650; J1940; J2250; J2704; J2920; J2930; J3010; J3480; J3486; J7030; J7040; J7050; J7060; Q9967; U0003